=== PATIENT | female | born 1930 | race Hispanic/Latino ===

== ENCOUNTER 2017-03-15 06:39 | Day surgery (SDC) | payer MEDICARE ==
[2017-03-14 07:51] VITALS: BMI 33.2
[2017-03-15] MEDS ORDERED: Iohexol 240 (50 ml) ONE (07:34)
[2017-03-15] MEDS ORDERED: Lidocaine 2% Jelly (Uro-Jet) ONE (07:34)
[2017-03-15] MEDS ORDERED: Propofol 10 mg/ml Inj (20 ML) ONE (07:44)
[2017-03-15] MEDS ORDERED: Lidocaine 2% Inj (20ml) ONE (07:45)
[2017-03-15 07:47] VITALS: RESP 18
[2017-03-15] MEDS ORDERED: Lactated Ringer's 1,000 ML IV SCH (08:20)
[2017-03-15] MEDS ORDERED: Morphine 2 mg/ml ISec IVP PRN (08:20)
--- NOTE | 2017-03-15 08:37 | RAD ---
HISTORY: PRE-OP COMPARISON: No prior. FINDINGS: LUNGS: No active pulmonary disease. PLEURA: No significant pleural effusion identified, no pneumothorax apparent. CARDIOVASCULAR: Normal. OSSEOUS STRUCTURES: No significant abnormalities. VISUALIZED UPPER ABDOMEN: Normal. OTHER FINDINGS: None. IMPRESSION: No active disease.
[2017-03-15 08:49] VITALS: O2SAT 95
[2017-03-15 09:20] VITALS: BP 137/69; PULSE 104; TEMP 98.3
--- NOTE | 2017-03-15 09:41 | CARD ---
APPROVED REPORT EKG Measurement Heart [id number] <Conclusion> Atrial fibrillation with rapid ventricular response Minimal voltage criteria for LVH, may be normal variant Abnormal ECG
--- NOTE | 2017-03-15 10:43 | RAD ---
PROCEDURE: Abdomen multiple views HISTORY: is rt ureteral stone visible? COMPARISON: TECHNIQUE: Three views FINDINGS: Right-sided ureteral stent. There are no stones seen along side the stent. IMPRESSION: No visible ureteral stone
--- NOTE | 2017-03-15 11:04 | RAD ---
PROCEDURE: Fluoroscopy up to 1 hour HISTORY: INSERTION RT STENT COMPARISON: TECHNIQUE: Fluoroscopy was provided in the operating room. 10 seconds of fluoroscopy time. Two images were submitted FINDINGS: The study shows placement of a right ureteral stent IMPRESSION: As above
--- NOTE | 2017-03-15 17:33 | OP ---
PROCEDURE DATE: 03/15/2017 PREOPERATIVE DIAGNOSIS: Obstructing right ureteral calculus. POSTOPERATIVE DIAGNOSES: Obstructing right ureteral calculus. PROCEDURE PERFORMED: Cystoscopy and insertion of right pigtail stent. SURGEON: Gordo France MD TYPE OF ANESTHESIA: LMA. DESCRIPTION OF PROCEDURE: After adequate LMA general anesthesia was given, the patient was placed lithotomy, prepped and draped in the usual manner. A 22-Somali cystourethroscope was introduced. Inspection of the bladder showed no tumors, foreign bodies, or stones. Clear efflux from the left orifices, none from the right. Urine was obtained for culture and sensitivity upon initial introduction of the cystoscope. There appeared to be a stone on fluoroscopy on the right side, opposite L4, I placed a 0.35 sensor wire up under fluoroscopic guidance. It went up and coiled in the kidney. Over this a 6-Somali 26 cm pigtail stent was then advanced. When properly placed, the wire was removed. The stent coiled nicely in the right renal pelvis within the bladder. The bladder was drained. The cystoscope was removed. The patient was awakened and brought to the recovery room in good condition. Gordo France MD
== END 2017-03-15 09:45 | disposition home or self-care (01) ==
LOC: SDS 06:39
PROVIDERS: ATTEND Urology
DX: N20.1 Calculus of ureter (principal); I10 Essential (primary) hypertension
CPT/HCPCS: 52332; 71010; 74022; 87086; 93005; C2625; J2270; J2405; J2704; J2765; J3010; J7120 ×2

== ENCOUNTER 2017-04-01 10:33 | Inpatient (IN) | payer MEDICARE ==
[2017-04-01 10:33] VITALS: BMI 33.2
--- NOTE | 2017-04-01 11:46 | ED PDOC ---
Arrival/HPI - General Chief Complaint: High Blood Pressure Time Seen by Provider: 04/01/17 11:12 Historian: Patient - History of Present Illness Narrative History of Present Illness (Text): 04/01/17 11:30 87 year old female, whose past medical history includes hypertension, gallstones , as well as prior subarachnoid hemorrhage, presents complaining of constant mid -sternal chest discomfort that began 03/12/17. She states symptoms occurred " out of nowhere" and is not associated with walking or activity. No associated shortness of breath or leg swelling. No nausea. She denies abdominal pain. She recorded her blood pressure at home this morning and it was noted to be "254/ 140 and 227/101" by family. She reporedly did not have headache or visual symptoms. No numbness or weakness or unsteadiness. Patient reports chest discomfort was not exacerbated this morning while having this blood pressure reading.. Patient states that she had trouble sleeping due to the discomfort and only slept for 3 hours. She describes the pain to be "not a sharp pain, but an annoying constant and steady discomfort". Patient also reports several years ago her doctor reportedly told her she had 2 gallstones found by X-Ray, no surgery was performed as reported prior symptoms were not acute. PMD: Dr. Mallory Time/Duration: Other (03/12/17 21 days) Symptom Onset: Gradual Symptom Course: Unchanged Activities at Onset: Light Context: Home Past Medical History - Provider Review Nursing Documentation Reviewed: Yes - Tetanus Immunization Tetanus Immunization: Unknown - Cardiac Hx Hypertension: Yes - Pulmonary Hx Respiratory Disorders: No - Neurological Hx Neurological Disorder: No - HEENT Hx HEENT Disorder: Yes ("WRINKLED RETINA") Hx Cataracts: Yes Hx Deafness: Yes - Renal Hx Renal Disorder: Yes Hx Kidney Stones: Yes - Endocrine/Metabolic Hx Endocrine Disorders: No - Hematological/Oncological Hx Blood Disorders: No - Integumentary Hx Dermatological Disorder: Yes Hx Eczema: Yes (H/O) - Musculoskeletal/Rheumatological Hx Musculoskeletal Disorders: Yes - Gastrointestinal Hx Gastrointestinal Disorders: Yes Hx Gall Bladder Disease: Yes (CHOLECYSTITIS,GALLSTONES) - Psychiatric Hx Substance Use: No - Surgical History Hx Musculoskeletal Surgery: Yes (R HIP, BILAT KNEES) - Anesthesia Hx Anesthesia: Yes Hx Anesthesia Reactions: No Hx Malignant Hyperthermia: No - Suicidal Assessment Feels Threatened In Home Enviroment: No Family/Social History - Physician Review Nursing Documentation Reviewed: Yes Family/Social History: No Known Family HX Smoking Status: Never Smoked Hx Alcohol Use: Yes (SOCIALLY/OCCASIONALLY) Hx Substance Use: No Allergies/Home Meds Allergies/Adverse Reactions: Allergies latex Allergy (Verified 04/01/17 10:42) SWELLING Home Medications: Home Meds Medication Instructions Recorded Confirmed Hydroxychloroquine Sulfate 200 mg PO DAILY 10/03/14 04/01/17 [Hydroxychloroquine Sulfate] Meloxicam [Meloxicam] 7.5 mg PO DAILY 10/03/14 04/01/17 Losartan/Hydrochlorothiazide 12.5 mg PO DAILY 03/14/17 04/01/17 [Losartan-Hctz 50-12.5 mg Tab] amLODIPine [Norvasc] 5 mg PO DAILY 03/14/17 04/01/17 Tamsulosin [Flomax] 0.4 mg PO DAILY 04/01/17 04/01/17 Review of Systems - Review of Systems Constitutional: absent: Fatigue, Fevers Eyes: absent: Vision Changes, Eye Pain ENT: absent: Hearing Changes, Rhinorrhea Respiratory: absent: SOB, Cough Cardiovascular: Chest Pain (mid-sternal). absent: Edema, Calf Pain, ALERGE Gastrointestinal: absent: Abdominal Pain, Diarrhea, Nausea, Vomiting, Appetite Changes Genitourinary Female: absent: Dysuria, Frequency Musculoskeletal: absent: Back Pain, Other (leg swelling) Skin: absent: Rash Neurological: absent: Headache, Dizziness, Focal Weakness Endocrine: absent: Polyuria, Polydipsia Hemo/Lymphatic: absent: Easy Bleeding Physical Exam - Physical Exam Narrative Physical Exam (Text): Head: Atraumatic. Normocephalic. Eyes: PERRL. EOMI. Conjunctivae are not pale. ENT: Mucous membranes are moist and intact. Oropharynx is clear and symmetric. Neck: Supple. Full ROM. No JVD. No lymphadenopathy. Cardiovascular: Regular rate. Regular rhythm. Systolic murmur is noted. Distal pulses are 2+ and symmetric. Pulmonary/Chest: No evidence of respiratory distress. Clear to auscultation bilaterally. No wheezing, rales or rhonchi. Abdominal: Soft and non-distended. There is no tenderness. No rebound, guarding, or rigidity. No organomegaly. Good bowel sounds. No pulsatile masses. Back: No CVA tenderness. Extremities: No edema. No cyanosis. No clubbing. Full range of motion in all extremities. No calf tenderness. Distal pulses intact. No foot edema or erythema noted. No streaking. Skin: Skin is warm and dry. No petechiae. No purpura. Neurological: Alert, awake, and oriented. No slurred speech. Motor and sensory exam intact. No facial droop. Cranial nerves grossly intact. Psychiatric: Good eye contact. Normal interaction, affect, and behavior. Vital Signs Reviewed: Yes Vital Signs Temp Pulse Resp BP Pulse Ox 04/01/17 15:30 98.1 F 90 16 145/69 04/01/17 15:28 98.1 F 90 16 145/69 95 04/01/17 12:31 88 18 133/58 L 98 04/01/17 10:44 98.2 F 91 H 16 159/77 H 96 Temperature: Afebrile Blood Pressure: Hypertensive Respiratory Rate: Normal Appearance: Positive for: Well-Appearing, Non-Toxic, Comfortable Pain Distress: Mild Mental Status: Positive for: Alert and Oriented X 3 Medical Decision Making ED Course and Treatment: 04/01/17 11:30 Impression: 87 year old female presents complaining of mid-sternal chest discomfort since . There was recorded elevated blood pressure this AM prior to arrival, but no associated acute symptoms aside from history of intermittent chest discomfort. Differential Diagnosis included but are not limited to: Coronary Artery Disease VS Gastritis VS Biliary Colic VS Systemic Hypertension Plan: -- EKG -- Labs -- Chest X-ray -- Urinalysis -- Reassess and disposition Progress Notes: Patient reportedly with prior history of hypertension, on hypertensive medications. Current BP in ED was taken multiple times and remains controlled in ED. She has chest discomfort but by history it is not exertional and has been intermittent for several weeks. She denies dsypnea, nausea or exertional pain. Her neuro exam is intact. Chest X-ray: Report Date : 04/01/2017 13:29:20 Dictator : Luis Fischer MD IMPRESSION: Poor inspiration with low lung volumes, crowded bronchovascular markings and mild bibasilar atelectasis. . Cardiomegaly. 04/01/17 14:02 Patient EKG with nonspecific st change. Initial troponin levels 0.04. Currently denies chest pain and abdominal pain. As she has had hypertension associated with chest pain, as well as no prior recent workup for cardiac disease, she will be admitted to on-call service for monitoring and serial exams with cardiology consultation. On re-exam, no abdominal pain, no pulsatile masses, BP controlled and currently no chest pain at rest. Family at beside updated with labs and treatment plan. - Lab Interpretations Lab Results: 04/01/17 11:40 04/01/17 11:40 Lab Results 04/01/17 12:04: Urine Color Yellow, Urine Appearance Slight-cloudy, Urine pH 6.0 , Ur Specific [place]on 1.020, Urine Protein Negative, Urine Glucose (UA) Negative , Urine Ketones Negative, Urine Blood Negative, Urine Nitrate Negative, Urine Bilirubin Negative, Urine Urobilinogen 0.2, Ur Leukocyte Esterase Trace H, Urine RBC 0 - 2, Urine WBC 1 - 3, Ur Epithelial Cells 1 - 3 04/01/17 11:40: PT 11.5, INR 1.06, APTT 26.1 04/01/17 11:40: WBC 5.2 D, RBC 4.00, Hgb 11.6 L, Hct 35.6 L, MCV 89.0, MCH 29.0 , MCHC 32.6, RDW 12.7, Plt Count 338, MPV 9.7, Gran % 73.2 H, Lymph % (Auto) 14.3 L, [place] % (Auto) 9.4 H, Eos % (Auto) 2.9, Baso % (Auto) 0.2, Gran # 3.80, Lymph # 0.7 L, [place] # 0.5, Eos # 0.2, Baso # 0.01 04/01/17 11:40: Sodium 139, Potassium 4.3, Chloride 103, Carbon Dioxide 30, Anion Gap 10, BUN 17, Creatinine 0.6, Est GFR ( Amer) > 60, Est GFR (Non- Af Amer) > 60, Random Glucose 110, Calcium 9.8, Total Bilirubin 0.7, AST 24, ALT 32, Alkaline Phosphatase 68, Lactate Dehydrogenase 360, Total Creatine Kinase 32 L, Troponin I 0.04, Total Protein 6.2, Albumin 3.7, Globulin 2.5, Albumin/Globulin Ratio 1.5, Amylase 36, Lipase 84 I have reviewed the lab results: Yes - RAD Interpretation Radiology Orders: 04/01/17 11:29 CHEST PORTABLE [RAD] Stat 04/01/17 13:24 ABDOMEN COMPLETE [US] Stat - EKG Interpretation EKG Interpretation (Text): 04/01/17 16:10 EKG sinus rhythm with first degree av block and nonspecific st t wave changes Interpreted by ED Physician: Yes Type: 12 lead EKG - Medication Orders Current Medication Orders: Acetaminophen (Tylenol 325mg Tab) 650 mg PO Q6H PRN PRN Reason: Fever >100.4 F Amlodipine Besylate (Norvasc) 5 mg PO DAILY LINDA Aspirin (Aspirin Chewable) 81 mg PO DAILY LINDA Hydrochlorothiazide (Microzide) 12.5 mg PO DAILY LINDA Hydroxychloroquine Sulfate (Plaquenil) 200 mg PO DAILY LINDA Losartan Potassium (Cozaar) 50 mg PO DAILY LINDA Meloxicam (Mobic) 7.5 mg PO DAILY LINDA Metoprolol Succinate (Toprol Xl) 25 mg PO BRK LINDA Ondansetron HCl (Zofran Inj) 4 mg IVP Q6H PRN PRN Reason: Nausea/Vomiting Pantoprazole Sodium (Protonix Ec Tab) 40 mg PO 0630 LINDA Tamsulosin HCl (Flomax) 0.4 mg PO DAILY LINDA Discontinued Medications Aspirin (Aspirin Chewable) 81 mg PO STAT STA Stop: 04/01/17 15:41 Last Admin: 04/01/17 15:44 Dose: 81 mg Aspirin (Aspirin Chewable) Confirm Administered Dose 81 mg .ROUTE .STK-MED ONE Stop: 04/01/17 15:45 Last Admin: 04/01/17 15:55 Dose: Hydrochlorothiazide (Microzide) 12.5 mg PO STAT STA Stop: 04/01/17 15:59 Losartan Potassium (Cozaar) 50 mg PO STAT STA Stop: 04/01/17 15:58 - Scribe Statement The provider has reviewed the documentation as recorded by the Orlyibderek Parsons All medical record entries made by the Orlyibderek were at my direction and personally dictated by me. I have reviewed the chart and agree that the record accurately reflects my personal performance of the history, physical exam, medical decision making, and the department course for this patient. I have also personally directed, reviewed, and agree with the discharge instructions and disposition. Disposition/Present on Arrival - Present on Arrival Any Indicators Present on Arrival: No History of DVT/PE: No History of Uncontrolled Diabetes: No Urinary Catheter: No History of Decub. Ulcer: No History Surgical Site Infection Following: None - Disposition Have Diagnosis and Disposition been Completed?: Yes Diagnosis: Chest pain, Hypertension Disposition: HOSPITALIZED Disposition Time: 12:30 Patient Plan: Admission, Observation, Telemetry Condition: FAIR
[2017-04-01 11:59] LABS: ALB/GLOB RATIO 1.5 (1.1-1.8); ALKALINE PHOSPHATASE 68 U/L (38-126); ALT/SGPT 32 U/L (7-56); AMYLASE 36 U/L (35-125); AST/SGOT 24 U/L (14-36); BILIRUBIN,TOTAL 0.7 mg/dL (0.2-1.3); BLOOD UREA NITROGEN 17 mg/dL (7-21); CALCIUM 9.8 mg/dL (8.4-10.5); CARBON DIOXIDE 30 mmol/L (21-33); CHLORIDE 103 mmol/L (98-107); GFR AFRICAN-AMERICAN > 60; GLUCOSE,RANDOM 110 mg/dL (70-110); LIPASE 84 U/L (23-300); POTASSIUM 4.3 mmol/L (3.6-5.0); SODIUM 139 mmol/L (132-148); TOTAL PROTEIN 6.2 g/dL (5.8-8.3)
[2017-04-01 12:04] LABS: BASO # 0.01 K/mm3 (0.0-2.0); BASO % 0.2 % (0.0-3.0); EOS # 0.2 (0.0-0.7); EOS % 2.9 % (1.5-5.0); GRAN # 3.8 (1.4-6.5); GRAN % 73.2 % (50.0-68.0); HEMATOCRIT 35.6 % (36.0-48.0); LYMPH # 0.7 (1.2-3.4); LYMPH % 14.3 % (22.0-35.0); MEAN CORPUSCULAR HGB CONC 32.6 g/dl (31.0-37.0); MEAN PLATELET VOLUME 9.7 fl (7.0-11.0); MONO # 0.5 (0.1-0.6); MONO % 9.4 % (1.0-6.0); RED CELL DISTRIBUTION WIDTH 12.7 % (11.5-14.5); WHITE BLOOD COUNT 5.2 10^3/ul (4.5-11.0)
[2017-04-01 12:10] LABS: TROPONIN I 0.04 ng/mL
[2017-04-01 12:11] LABS: URINE BILIRUBIN NEGATIVE (NEGATIVE); URINE BLOOD NEGATIVE (NEGATIVE); URINE GLUCOSE (UA) NEGATIVE (NEGATIVE); URINE KETONE NEGATIVE (NEGATIVE); URINE LEUKOCYTE ESTERASE TRACE Leu/uL (NEGATIVE); URINE PROTEIN NEGATIVE mg/dL (<30 mg/dL); URINE UROBILINOGEN 0.2 E.U./dL (<1 E.U./dL)
[2017-04-01 12:12] LABS: INR 1.06 (0.93-1.08); PARTIAL THROMBOPLASTIN TIME 26.1 Seconds (23.7-30.8)
[2017-04-01 12:14] LABS: URINE APPEARANCE SLIGHT-CLOUDY (CLEAR); URINE COLOR YELLOW (YELLOW)
[2017-04-01 12:22] LABS: URINE RBC 0 - 2 /hpf (0-2)
--- NOTE | 2017-04-01 13:31 | RAD ---
HISTORY: chest pain COMPARISON: Comparison chest 03/15/2017 FINDINGS: LUNGS: Poor inspiration with low lung volumes, crowded bronchovascular markings and mild bibasilar atelectasis. . PLEURA: No significant pleural effusion identified, no pneumothorax apparent. CARDIOVASCULAR: Heart is enlarged. OSSEOUS STRUCTURES: Mild multilevel degenerative spondylosis of the thoracic spine. Mild degenerative changes both shoulder girdles. VISUALIZED UPPER ABDOMEN: Normal. OTHER FINDINGS: None. IMPRESSION: Poor inspiration with low lung volumes, crowded bronchovascular markings and mild bibasilar atelectasis. . Cardiomegaly.
--- NOTE | 2017-04-01 14:17 | CARD ---
APPROVED REPORT EKG Measurement Heart [id number] <Conclusion> Sinus rhythm with 1st degree AV block Nonspecific T wave abnormality Abnormal ECG
[2017-04-01] MEDS ORDERED: LOSARTAN PO SCH (16:00)
[2017-04-01] MEDS ORDERED: HYDROCHLOROTHIAZIDE PO SCH (16:00)
[2017-04-01] MEDS ORDERED: [UNRECOGNIZED DRUG - OTHER] PO SCH (16:00)
--- NOTE | 2017-04-01 16:49 | US ---
HISTORY: upper abdominal pain COMPARISON: None. TECHNIQUE: Sonographic evaluation of the abdomen. FINDINGS: LIVER: Measures approximately 14 cm in CC dimension. Cm. Smooth contour though slight increased echogenicity of the liver parenchyma suggest fatty infiltration. Other infiltrative hepatocellular disease process not excluded. . No obvious parenchymal masses or collections seen on images presented. No intrahepatic bile duct dilatation. Portal vein demonstrates hepatopetal flow. No ascites. GALLBLADDER: No evidence of intraluminal gallbladder calculi. No pericholecystic fluid collections or sonographic Fraire sign. COMMON BILE DUCT: Measures 4.6 mm. No stones. No dilatation. PANCREAS: Unremarkable as visualized. No mass. No ductal dilatation. RIGHT KIDNEY: Measures approximately 11.0 x 5.5 x 5.8cm. Normal echogenicity. No calculus, mass, or hydronephrosis. LEFT KIDNEY: Measures approximately 11.7 x 4.3 x 4.5cm. Normal echogenicity. No calculus, mass, or hydronephrosis. . There are 2 anechoic foci left kidney (likely representing renal cysts) ; the 1st and the largest located in the upper pole measuring 3.8 cm in greatest dimension and 2nd in the midpole measuring approximately 1.2 cm in greatest dimension. . SPLEEN: Normal in size and contour. No mass. AORTA: No aneurysmal dilatation. IVC: Unremarkable. OTHER FINDINGS: None. IMPRESSION: No evidence of cholelithiasis. Mild fatty hepatic infiltration. Two anechoic foci left kidney likely representing renal cysts.
[2017-04-01] MEDS: Metoprolol Succinate 25 mg XL Tab PO SCH (16:54)
[2017-04-02 00:10] VITALS: O2SAT 96
--- NOTE | 2017-04-02 01:25 | HP ---
HISTORY OF PRESENT ILLNESS: The patient is 87 years old who came to emergency room because of chest pain, having epigastric discomfort. Pain was in the midsternal area. The patient states she is having intermittent symptoms for a couple of days, to be exact on 03/12/2017 she had similar symptom. At that point, her blood pressure at home was 254/140, but after she rested she felt better. She slept for a couple of hours and pain seemed to subside. Pain is not sharp and it is a dull, aching, retrosternal discomfort. Denies any fever or chills. No nausea or vomiting. No diarrhea. No hemoptysis. No hematemesis. No history of rectal bleeding. PAST MEDICAL HISTORY: She has significant past medical history of: 1. Hypertension. 2. Cholelithiasis. 3. History of generalized osteoarthritis. PAST SURGICAL HISTORY: Significant for right hip and bilateral knee replacement. ALLERGIES: SHE IS NOT ALLERGIC TO ANY MEDICATION. MEDICATIONS: At home she is on; 1. Chloroquine. 2. Amlodipine. 3. Hyzaar. 4. Meloxicam. 5. She is on Flomax 0.4 daily. She is on amlodipine 5 mg daily. She is on 7.5 mg of meloxicam. She is on Hyzaar of 50/12.5. 6. She takes Plaquenil. SOCIAL HISTORY: Denies smoking or drinking, socially drinks only. PHYSICAL EXAMINATION: GENERAL: On examination, she is awake and alert, communicative. VITAL SIGNS: She is afebrile. Pulse 90, respirations 16, blood pressure 145/69. LUNGS: Bilateral fair air flow. No rhonchi or crackles. HEART: S1 and S2 audible. ABDOMEN: Soft, nontender. No rebound. No guarding. NEUROLOGIC: The patient is awake and alert, able to communicate. LABORATORY EXAM: WBC is 5.2, hemoglobin 11.6, hematocrit 35.6, platelets 338. PT 11.5, INR 1.06. Chemistry: Sodium 139, potassium 4.3, chloride 103, CO2 of 30, BUN 17, and creatinine 0.6. Blood sugar of 110. LFTs are within normal limits. CPK is 32. Urinalysis is unremarkable, trace leukocyte. IMAGING: Abdominal ultrasound is pending. X-ray chest: Poor inspiration with low lung volume with cardiomegaly. EKG shows normal sinus rhythm and first degree block. ASSESSMENT: 1. Atypical chest pain, rule out coronary artery syndrome versus peptic ulcer disease. 2. History of cholelithiasis. 3. History of rheumatoid arthritis. 4. Hypertension. 5. Status post bilateral knee replacement. PLAN: The patient will be placed in observation. We will follow up cardiac enzymes. We will resume her usual medication. Cardiology consult by Dr. Dennis has been requested. We will follow up abdominal ultrasound and start her on PPI. We will reevaluate the patient in a.m. Constance Hall MD
[2017-04-02] MEDS: Pantoprazole 40 mg EC Tab PO SCH (05:33)
[2017-04-02 07:27] LABS: BASO # 0.01 K/mm3 (0.0-2.0); BASO % 0.2 % (0.0-3.0); EOS # 0.2 (0.0-0.7); EOS % 3.2 % (1.5-5.0); GRAN # 4.47 (1.4-6.5); GRAN % 71.6 % (50.0-68.0); HEMATOCRIT 36.7 % (36.0-48.0); LYMPH # 0.9 (1.2-3.4); LYMPH % 14.4 % (22.0-35.0); MEAN CELL VOLUME 89.3 fl (80.0-105.0); MEAN CORPUSCULAR HEMOGLOBIN 28.7 pg (25.0-35.0); MEAN CORPUSCULAR HGB CONC 32.2 g/dl (31.0-37.0); MEAN PLATELET VOLUME 9.7 fl (7.0-11.0); MONO # 0.7 (0.1-0.6); MONO % 10.6 % (1.0-6.0); RED CELL DISTRIBUTION WIDTH 12.9 % (11.5-14.5); WHITE BLOOD COUNT 6.2 10^3/ul (4.5-11.0)
[2017-04-02 07:50] LABS: ALB/GLOB RATIO 1.4 (1.1-1.8); ALKALINE PHOSPHATASE 61 U/L (38-126); ALT/SGPT 26 U/L (7-56); AST/SGOT 29 U/L (14-36); BILIRUBIN,TOTAL 0.8 mg/dL (0.2-1.3); BLOOD UREA NITROGEN 14 mg/dL (7-21); CALCIUM 9.8 mg/dL (8.4-10.5); CARBON DIOXIDE 28 mmol/L (21-33); CHLORIDE 105 mmol/L (98-107); GFR AFRICAN-AMERICAN > 60; GLUCOSE,RANDOM 101 mg/dL (70-110); MAGNESIUM 1.7 mg/dL (1.7-2.2); POTASSIUM 4.2 mmol/L (3.6-5.0); SODIUM 141 mmol/L (132-148); TOTAL PROTEIN 5.9 g/dL (5.8-8.3)
[2017-04-02 08:23] LABS: FREE T4 1.25 ng/dL (0.78-2.19)
[2017-04-02 08:37] LABS: THYROID STIMULATING HORMONE 0.45 mIU/mL (0.46-4.68)
[2017-04-02] MEDS: Meloxicam 7.5 MG TAB PO SCH (10:03)
[2017-04-02] MEDS: Metoprolol Succinate 25 mg XL Tab PO SCH (10:04)
--- NOTE | 2017-04-02 14:10 | PN ---
DATE: SUBJECTIVE: The patient is an 87 years old, seen and examined. She states she has right flank pain and that she was relating to by the end of February, she was found to have nephrolithiasis, she went to see the urologist who put the stent. She was supposed to follow that urologist on Sunday, but yesterday she was having retrosternal discomfort that has significantly improved and almost gone. No nausea or vomiting. No fever and no chills. PHYSICAL EXAMINATION: VITAL SIGNS: She is afebrile. Pulse is 80, respirations are 20, and blood pressure is 178/71. LUNGS: Bilateral fair airflow. No rhonchi or crackles. HEART: S1 and S2 audible. ABDOMEN: Soft and nontender. No rebound. No guarding. NEUROLOGICAL: The patient is awake and alert and able to communicate. LABORATORY DATA: WBC of 6.2, hemoglobin of 11.8, hematocrit of 36.7, and platelets of 326. Sodium of 141, potassium of 4.2, chloride of 105, CO2 of 28, BUN of 14, and creatinine of 0.6. Blood sugar of 101. LFTs are within normal limits. RADIOLOGIC DATA: She has an abdominal sonogram done that has no evidence of cholelithiasis; however, she has mild hepatic fatty infiltration. ASSESSMENT AND PLAN: 1. Chest pain, probably atypical. 2. Hypertension. 3. Recent episode of renal colic. 4. Generalized osteoarthritis. PLAN: Her three sets of cardiac enzymes are negative. We will discuss with Cardiology for further plan that if she is going stress test or cath and we will reevaluate. Constance Hall MD
[2017-04-02] MEDS ORDERED: Lidocaine 2% Inj (20ml) ONE ×2 (14:16→15:27)
[2017-04-02] MEDS ORDERED: Midazolam 2 MG/2 ML VIAL ONE (14:17)
[2017-04-02] MEDS ORDERED: Nitroglycerin 50mg in D5W 50 MG/250 ML BOTTLE IV ONE (14:18)
[2017-04-02] MEDS ORDERED: Iohexol 350mgl/ml 50 ML ONE (15:01)
[2017-04-02] MEDS ORDERED: Iohexol 350 MG/100 ML VIAL ONE (15:17)
[2017-04-02] MEDS ORDERED: Eptifibatide 20 mg/10mL Inj IVP ONE (15:39)
[2017-04-02] MEDS ORDERED: Sodium Chloride 0.9% 1,000 ML IV SCH (16:30)
--- NOTE | 2017-04-02 16:54 | CARD ---
APPROVED REPORT Procedure(s) performed: Left Heart Catheterization PTCA with Stenting of Proximal to Mid RCA with JOELLE HISTORY peripheral vascular disease, hypertension , dyslipidemia , Admitted with Acute ACS. INDICATION The indication(s) include : unstable angina , chest pain, dyspnea. CASE TECHNIQUE The patient was brought urgently to the Cardiac Catheterization Laboratory in a fasting state and was prepped and draped in a sterile manner. The left wrist was infiltrated with 2% Lidocaine subcutaneous anesthesia. A 6 Fr Glidesheath (Radial) sheath was inserted into the left radial artery without difficulty. Coronary angiography was performed using coronary diagnostic catheters. The left coronary system was accessed and visualized with a Diagnostic ,6 Fr AL 1 catheter. The right coronary system was accessed and visualized with a Diagnostic ,6 Fr AL 1 catheter. The left ventricle was accessed and visualized with a 5 Fr TIG 4 (Radial) catheter. Left ventricular/Aortic Valve gradient assessed on pullback. Left ventriculogram was performed in GEORGE projection. Pre-demployment femoral angiogram was performed . The patient tolerated the procedure well and there were no complications associated with the procedure. Cath started with left radial but could not canulate RCA b/c seperior take off so Right Femral access obtained and PTCa completed from RFA Vessel Analysis The patient's coronary anatomy is right dominant. The left main coronary artery is a large size vessel with diffuse calcification noted throughout this vessel and without significant stenosis. The left main trifurcates to the left anterior descending, circumflex, and ramus. The left anterior descending artery is a large size vessel with diffuse calcification noted throughout this vessel and without significant stenosis. The first diagonal branch is a medium size vessel with diffuse calcification noted throughout this vessel and without significant stenosis. There is a 60-70% stenosis in the proximal segment. The circumflex artery is a small size vessel with diffuse calcification noted throughout this vessel and without significant stenosis. The first obtuse marginal branch is a small size vessel with diffuse calcification noted throughout this vessel and without significant stenosis. The ramus intermedius artery is a medium size vessel with diffuse calcification noted throughout this vessel and without significant stenosis. There is a 40-50% stenosis in the proximal segment. The right coronary artery is a large size vessel with diffuse calcification noted throughout this vessel and with significant stenosis. There is a 90% stenosis in the proximal segment. Multiple stenoses in proximal to Mid Segment The right posterior descending artery is a medium size vessel with diffuse calcification noted throughout this vessel and without significant stenosis. Left Ventricle The left ventricle is normal in size with normal contractility. There was no cardiomyopathy. The left ventricular ejection fraction is estimated to be 55%. The left ventricular end diastolic pressure is 18 mmHg. There was no gradient across the aortic valve upon pullback. PCI Technique Lesion Anticoagulation was achieved with Heparin. Percutaneous coronary intervention was performed on the proximal right coronary artery. The lesion stenosis prior to intervention was 90% with ELLIS 2 flow. A 6 Fr AL 1 Guide Catheter was used to engage the ostium. BALLOON DILATION A Balloon catheter 2.0 x 12 mm Sprinter RX was inserted and inflated up to 12.00atm for 21seconds. STENT DEPLOYMENT A drug-eluting stent 3.0 x 30 mm Resolute JOELLE was inserted and inflated up to 12.00atm for 21seconds. POST STENT DEPLOYMENT BALLOON DILATION A Balloon catheter 3.25 x 15 mm Sprinter NC was inserted and inflated up to 12.00atm for 21seconds. Final angiography reveals 0 % stenosis with ELLIS 3 flow. Conclusion Single Vessel Critical Disease In proximat to Mid RCA 90% Moderate Disease in D1 and ramus intermedius. Preserved Lv Fx. Ef-555, EDP-18 mmof Hg. Successful PTCA with JOELLE of RCA Recommendations Daily ASA with Plavix for at least one year Aggressive Medical TherapyCardiac Risk Reduction Program Weight Loss Reduction Program CC; Drs. Hall/Isaiah Mallory.
[2017-04-02 20:23] LABS: BASO # 0.01 K/mm3 (0.0-2.0); BASO % 0.1 % (0.0-3.0); EOS # 0.2 (0.0-0.7); EOS % 2.2 % (1.5-5.0); GRAN # 5.48 (1.4-6.5); GRAN % 74.8 % (50.0-68.0); HEMATOCRIT 36.1 % (36.0-48.0); LYMPH # 0.9 (1.2-3.4); LYMPH % 11.6 % (22.0-35.0); MEAN CORPUSCULAR HEMOGLOBIN 29.3 pg (25.0-35.0); MEAN CORPUSCULAR HGB CONC 33.2 g/dl (31.0-37.0); MEAN PLATELET VOLUME 9.8 fl (7.0-11.0); MONO # 0.8 (0.1-0.6); MONO % 11.3 % (1.0-6.0); RED CELL DISTRIBUTION WIDTH 12.7 % (11.5-14.5); WHITE BLOOD COUNT 7.3 10^3/ul (4.5-11.0)
[2017-04-02 20:35] LABS: BLOOD UREA NITROGEN 13 mg/dL (7-21); CALCIUM 9.9 mg/dL (8.4-10.5); CARBON DIOXIDE 26 mmol/L (21-33); CHLORIDE 103 mmol/L (98-107); GFR AFRICAN-AMERICAN > 60; GLUCOSE,RANDOM 94 mg/dL (70-110); POTASSIUM 3.7 mmol/L (3.6-5.0); SODIUM 137 mmol/L (132-148)
--- NOTE | 2017-04-02 20:39 | CARD ---
APPROVED REPORT EKG Measurement Heart [id number] <Conclusion> Normal sinus rhythm Nonspecific T wave abnormality Abnormal ECG
--- NOTE | 2017-04-02 21:36 | CON ---
DATE: CONSULT SERVICE: Cardiology. CARDIOLOGY PHYSICIAN: Bree Dennis MD REASON FOR CONSULTATION: Unstable angina, cardiac evaluation. BRIEF CLINICAL HISTORY: An 87-year-old female with past medical history significant for hypertension, cholelithiasis treated medically, history of arthritis on Plaquenil, came in with compliant of chest pain off and on. Yesterday, the patient when coming out of the [facility] had chest pain pressure like with shortness of breath. The patient thought that she cannot take anymore and the blood pressure shot up to 254/140. The patient recently complained of having chest pain and dyspnea on exertion with walking. Pressure in the ER was 159/77. Denies any chest pain now. PAST MEDICAL HISTORY: Significant for hypertension many years, stone in gallbladder was treated medically, history of arthritis. SOCIAL HISTORY: Denies smoking. Denies any history of alcohol abuse. PAST SURGICAL HISTORY: Significant for hip surgery 5 years ago and bilateral knee 7 years ago. ALLERGIES: NO KNOWN DRUG ALLERGIES. CURRENT MEDICATIONS: The patient is taking at home: Flomax, amlodipine, meloxicam, Losartan and Plaquenil. REVIEW OF SYSTEMS: As per HPI. PHYSICAL EXAMINATION: VITAL SIGNS: As follows, temperature afebrile, heart rte 91, and blood pressure 149/65. HEENT: PERRLA. Extraocular muscles are intact. NECK: Supple. No carotid bruits or thyromegaly. CHEST: Clear to auscultation. HEART: S1 and S2 regular. ABDOMEN: Soft. EXTREMITIES: Clubbing, cyanosis negative. LABORATORY DATA: Blood workup as follows: WBC 6.8, hemoglobin 11.8, hematocrit 36.7, and platelet count 326. Chemistry shows sodium 141, potassium 4.2, chloride 105, carbon dioxide 28, anion gap of 12, BUN 14, and creatinine 0.6. TSH 4.5. Total protein 6.2, albumin 3.7, and albumin-globulin ratio 1.5. Troponin 0.04, repeat is 0.08. EKG shows normal sinus, first degree AV block, heart rate 80. No acute ST-T changes noted. IMPRESSION: Acute coronary syndrome, first troponin 0.04, repeat 0.04, and next is 0.1. Progressively increasing troponin, acute shortness of breath, unstable angina, hypertension, obesity, body mass index 30 kg/m2 and crescendo angina. In view of multiple risk factors of coronary artery disease and crescendo angina decided to take to the matlab developer. Discussed with the patient's daughter named Brionna, telephone number [phone], agreeable to proceed for cardiac catheterization upon the availability of the matlab developer. We will load her with Plavix 100 mg and aspirin 325. Keep n.p.o. Further recommendation after cardiac catheterization. We will get echo to access left ventricular function. We will follow with you. Thank you Dr. Hall for providing us the opportunity in taking care of patient Carolee Ron. Bree Dennis MD
[2017-04-02] MEDS ORDERED: Calcium Chloride 1000 mg/10 ml Syringe IV ONE (22:10)
[2017-04-02] MEDS ORDERED: Bacitracin 500 Units/gm Oint Foilpak UD ONE (22:12)
[2017-04-03] MEDS: Pantoprazole 40 mg EC Tab PO SCH (06:27)
[2017-04-03 06:57] LABS: BASO # 0.01 K/mm3 (0.0-2.0); BASO % 0.1 % (0.0-3.0); EOS # 0.1 (0.0-0.7); EOS % 1.1 % (1.5-5.0); GRAN # 6.47 (1.4-6.5); GRAN % 74.4 % (50.0-68.0); HEMATOCRIT 35.4 % (36.0-48.0); MEAN CELL VOLUME 88.3 fl (80.0-105.0); MEAN CORPUSCULAR HEMOGLOBIN 28.7 pg (25.0-35.0); MEAN CORPUSCULAR HGB CONC 32.5 g/dl (31.0-37.0); MEAN PLATELET VOLUME 9.9 fl (7.0-11.0); MONO # 1.2 (0.1-0.6); MONO % 13.4 % (1.0-6.0); RED CELL DISTRIBUTION WIDTH 12.9 % (11.5-14.5); WHITE BLOOD COUNT 8.7 10^3/ul (4.5-11.0)
[2017-04-03 07:16] LABS: ALB/GLOB RATIO 1.3 (1.1-1.8); ALKALINE PHOSPHATASE 60 U/L (38-126); ALT/SGPT 31 U/L (7-56); AST/SGOT 22 U/L (14-36); BILIRUBIN,TOTAL 1.1 mg/dL (0.2-1.3); BLOOD UREA NITROGEN 13 mg/dL (7-21); CALCIUM 9.6 mg/dL (8.4-10.5); CARBON DIOXIDE 27 mmol/L (21-33); CHLORIDE 105 mmol/L (98-107); CHOLESTEROL 161 mg/dL (130-200); GFR AFRICAN-AMERICAN > 60; GLUCOSE,RANDOM 109 mg/dL (70-110); MAGNESIUM 1.5 mg/dL (1.7-2.2); PHOSPHOROUS 3.2 mg/dL (2.5-4.5); POTASSIUM 3.8 mmol/L (3.6-5.0); SODIUM 139 mmol/L (132-148); TOTAL PROTEIN 5.8 g/dL (5.8-8.3)
[2017-04-03] MEDS ORDERED: Potassium Chloride 20 mEq ER Tab PO ONE (07:43)
[2017-04-03] MEDS ORDERED: Magnesium Sulfate 2 GM in Sodium Chloride 0.9% 100 ML IVPB ONE (07:43)
[2017-04-03] MEDS: Metoprolol Succinate 25 mg XL Tab PO SCH (08:53)
[2017-04-03] MEDS ORDERED: Aspirin 325 mg EC Tablets PO SCH (10:00)
[2017-04-03] MEDS ORDERED: Magnesium Oxide 400 mg Tab UD PO SCH (10:00)
[2017-04-03] MEDS: Meloxicam 7.5 MG TAB PO SCH (10:01)
[2017-04-03 13:09] VITALS: BP 107/56; PULSE 85; RESP 17; TEMP 98.9
--- NOTE | 2017-04-03 15:01 | PN ---
DATE OF SERVICE: 04/03/2017 REASON FOR CONSULTATION: Followup acute coronary syndrome and unstable angina, status post PTCA of RCA, anomalous origin of RCA. SUBJECTIVE: The patient denies chest pain, short of breath, any palpitation, feels a lot better. OBJECTIVE: GENERAL: Lying flat in the bed, not in apparent distress. VITAL SIGNS: Temperature afebrile, heart rate 89, blood pressure 146/75. HEENT: PERRLA. Extraocular muscles are intact. NECK: Supple. No carotid bruits or thyromegaly. CHEST: Clear to auscultation. HEART: S1 and S2 regular. ABDOMEN: Soft. EXTREMITIES: Clubbing, cyanosis negative. LABORATORY DATA: Blood workup as follows: WBC 8.7, hemoglobin 11.8, hematocrit 35.4, platelet count 325. Chemistry shows sodium 139, potassium 3.9, chloride 105, carbon dioxide 27, anion gap of 11, BUN 13, creatinine 0.5, and magnesium 1.5. Troponin is 0.10. 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 RECOMMENDATION: Supplement magnesium, supplement potassium, continue aspirin baby, continue Plavix 75 mg daily, continue losartan, continue Lipitor, possible discharge, echo. We will discontinue telemetry. Thank you Dr. Hall for providing us the opportunity in taking care of the patient. We will follow with you. Bree Dennis MD cc: Dr. Hall
--- NOTE | 2017-04-04 03:42 | DS ---
HISTORY OF PRESENT ILLNESS: The patient is 87 years old seen and examined, lying in bed, seemed to be comfortable, no more chest pain. No belly pain. No flank pain. Eating and tolerating. No nausea or vomiting. PHYSICAL EXAMINATION: VITAL SIGNS: She is afebrile, pulse 89, respirations 20, and blood pressure 140/69. LUNGS: Bilateral fair airflow. No rhonchi or crackles. HEART: S1 and S2 audible. No murmur. ABDOMEN: Soft and nontender. No rebound. No guarding. NEUROLOGIC: The patient is awake and alert, able to communicate. LABORATORY DATA: WBC is 8.7, hemoglobin 11.5, hematocrit 35.4 and platelet of 325. Chemistry; sodium 139, potassium 3.8, chloride 105, CO2 of 27, BUN 13, creatinine 0.6, blood sugar of 109 and magnesium is 1.5. ASSESSMENT: 1. Chest pain, status post cardiac cath, 90% occlusion of right coronary artery had angioplasty done. 2. Recent nephrolithiasis and stent placement. 3. Hypertension. 4. Hyperlipidemia. PLAN: The patient will be discharge today. She is given prescription of aspirin 81 daily. She will continue losartan and Flomax. She is given Lipitor 20 mg, she was started mg daily. She will continue amlodipine and Plaquenil. We will add Plavix 75 daily and metoprolol 25 at bedtime. She will followup with her PMD. If she is clinically stable, can be discharge today. Constance Hall MD
== END 2017-04-03 15:00 | disposition home or self-care (01) | DRG 247 ==
LOC: ED 10:33 → ERH 14:06 → 2RSO 16:08 → OBSVTOIN 04-02 17:01
PROVIDERS: ADMIT Internal Medicine; ATTEND Internal Medicine
PROC: 027034Z Dilation of Coronary Artery, One Artery with Drug-eluting Intraluminal Device, Percutaneous Approach (ICD-10-PCS; principal; 2017-04-02)
PROC: 4A023N7 Measurement of Cardiac Sampling and Pressure, Left Heart, Percutaneous Approach (ICD-10-PCS; 2017-04-02)
PROC: B2111ZZ Fluoroscopy of Multiple Coronary Arteries using Low Osmolar Contrast (ICD-10-PCS; 2017-04-02)
PROC: B2151ZZ Fluoroscopy of Left Heart using Low Osmolar Contrast (ICD-10-PCS; 2017-04-02)
PROC: 3E033PZ Introduction of Platelet Inhibitor into Peripheral Vein, Percutaneous Approach (ICD-10-PCS; 2017-04-02)
DX: I24.9 Acute ischemic heart disease, unspecified (principal); Q24.5 Malformation of coronary vessels; I11.9 Hypertensive heart disease without heart failure; J98.11 Atelectasis; I73.9 Peripheral vascular disease, unspecified; I20.0 Unstable angina; E78.5 Hyperlipidemia, unspecified; E66.9 Obesity, unspecified; Z68.30 Body mass index [BMI] 30.0-30.9, adult; H91.90 Unspecified hearing loss, unspecified ear; I51.7 Cardiomegaly; K80.20 Calculus of gallbladder without cholecystitis without obstruction; M06.9 Rheumatoid arthritis, unspecified; M15.9 Polyosteoarthritis, unspecified; N20.0 Calculus of kidney; Z79.899 Other long term (current) drug therapy; Z87.442 Personal history of urinary calculi; Z96.653 Presence of artificial knee joint, bilateral; Z98.61 Coronary angioplasty status; H26.9 Unspecified cataract; Z91.040 Latex allergy status; M19.90 Unspecified osteoarthritis, unspecified site; I44.0 Atrioventricular block, first degree; E83.42 Hypomagnesemia

== ENCOUNTER 2018-02-07 09:30 | Day surgery (SDC) | payer MEDICARE ==
[2018-01-28 07:10] VITALS: BMI 33.5
--- NOTE | 2018-02-07 05:04 | HP ---
REASON FOR ADMISSION: VICKY cardioversion. BRIEF CLINICAL HISTORY: This is an 87-year-old female with past medical history significant for unstable angina, acute coronary syndrome, status post PTCA of anomalous right coronary artery with drug eluting stent on 04/02/2017. Followup stress test done on 01/30/2018 of the patient shows AFib new-onset. Patient was started on Eliquis and metoprolol, and patient is scheduled today for VICKY cardioversion. Patient denies chest pain, shortness of breath, or any palpitation. PAST MEDICAL HISTORY: Significant for hypertension, hyperlipidemia, acute coronary syndrome, PTCA of anomalous right coronary artery on 04/02/2017. RECENT CARDIAC WORKUP: As follows: Patient had an EKG on 01/30/2018 that showed AFib, rate of 99, poor R-wave progression. Patient had a Lexiscan done on 01/25/2018 that showed ejection fraction of 60%, fixed defect. Patient had a bilateral carotid Duplex on 01/03/2018 that showed bilateral 29% stenosis. Patient's echocardiography on 01/03/2018, ejection fraction 61%, mild PI, guua-le-hkgjyyuf mitral regurgitation, uoad-ws-wjjixubk tricuspid regurgitation, RV systolic pressure 41. CURRENT MEDICATIONS: Patient is taking metoprolol tartarate 25 mg twice, Eliquis 5 mg b.i.d., Protonix 40 mg daily, amlodipine 5 mg daily, simvastatin 20 mg daily, losartan/hydrochlorothiazide 50/12.5 mg daily, aspirin 81 mg daily. ALLERGIES: NO KNOWN DRUG ALLERGIES. ALLERGIC TO LATEX. REVIEW OF SYSTEMS: As per HPI. PHYSICAL EXAMINATION: VITAL SIGNS: As follows; height of the patient 5 feet, weight of the patient 172 pounds, body mass index 33.6 kg/m2. Rest of the examination; heart rate 60, blood pressure 130/70. HEENT: PERRLA. Extraocular muscles intact. NECK: Supple. No carotid bruits or thyromegaly. CHEST: Clear to auscultation. HEART: S1 and S2 regular. ABDOMEN: Soft. EXTREMITIES: Clubbing and cyanosis negative. LABORATORY DATA: Blood workup, pending. IMPRESSION AND PLAN: Atrial fibrillation - new-onset, history of coronary artery disease, status post acute coronary syndrome, status post unstable angina, history of percutaneous transluminal coronary angioplasty of anomalus right coronary artery with drug eluting stent on 04/02/2017. Recent stress test negative dated 01/25/2018, ejection fraction 60%, fixed defect. Electrocardiogram shows atrial fibrillation, bilateral carotid 20% to 29% stenosis. Echo shows ejection fraction of 60%, mild pulmonary insufficiency, ydrd-zu-mdfrwjvl tricuspid regurgitation, mitral regurgitation. Patient admitted with new-onset atrial fibrillation. We will do the transesophageal echocardiography cardioversion. Risks, benefits and alternatives explained to the patient. Patient agreed. We will proceed for transesophageal echocardiography cardioversion. Further recommendation will depend upon the hospital course. We will get electrocardiogram now, and if patient remains in atrial fibrillation, we will proceed for transesophageal echocardiography cardioversion. Bree Dennis MD
[2018-02-07] MEDS ORDERED: Midazolam 2 MG/2 ML VIAL ONE (11:53)
[2018-02-07] MEDS ORDERED: Metoprolol 1 mg/ml Inj IVP ONE ×2 (11:54→12:40)
[2018-02-07] MEDS ORDERED: Flumazenil 0.1 mg/ml Inj (5ml) IVP ONE (11:54)
[2018-02-07] MEDS ORDERED: Naloxone 0.4 mg/ml Inj (Adult) ONE (11:54)
[2018-02-07] MEDS ORDERED: Midazolam 2 MG/2 ML VIAL IV ONE ×3 (12:17→12:32)
[2018-02-07] MEDS ORDERED: Sodium Chloride 0.9% 1,000 ML IV SCH (12:45)
[2018-02-07 14:01] VITALS: BP 115/53; PULSE 63; RESP 20; TEMP 97.3; O2SAT 90
--- NOTE | 2018-02-07 17:31 | CARD ---
APPROVED REPORT Date of service: 02/07/2018 EXAM: Transesophageal echocardiogram with color flow Doppler and Synchronized Cardioversion. INDICATION Atrial Fibrillation 2D DIMENSIONS LVOT Diameter1.8 (1.8-2.4cm) Aortic Valve AoV Peak Lejhvfyo094.0cm/[place] Peak GR.15mmHgLVOT Peak Bwlrvukm64.1cm/s LVOT VTI17.10cmAVA (VMAX)1.27cm2 Mitral Valve E/A ratio0.0 TDI E/Lateral E'0.0E/Medial E'0.0 Tricuspid Valve TR Peak Ndldvhjf092ku/sRAP VBLVGHIB87qcViBE Peak Gr.9mmHg GTHB38dmWl Reason For Test : VICKY and cardioversion PROCEDURE After obtaining informed consent, patient underwent transesophageal echo in the Echo Lab. Type of Sedation : Conscious Sedation Sedation was administered by Dr. dawson. Sedation was achieved with Versed and , Fentanyl 3 mg and 150 mcg intravenously. Transesophageal probe was inserted and advanced into esophagus without difficulty. Echo enhancement indication: R/O Septal defect. Echo enhancement agent administered: Agitated Saline The VICKY was performed without complications. Synchronized Cardioversion attempted: Successful Synchronized Cardioversion acheived with 200 Joules after first attempt(s). Rhythm following Synchronized Cardioversion: Throughout the procedure, the blood pressure, pulse oximetry, cardiac rhythm, and rate were monitored. The patient tolerated the procedure without adverse effects. Recovery from conscious sedation was uneventful and vital signs were stable. LEFT VENTRICLE The left ventricle is normal size. There is normal left ventricular wall thickness. The left ventricular function is normal.EF -55% ( a fib) There is normal LV segmental wall motion. a fib No left ventricle thrombus noted on this study. There is no ventricular septal defect visualized. There is no left ventricular aneurysm. There is no mass noted in the left ventricle. RIGHT VENTRICLE The right ventricle is mildly dilated. There is normal right ventricular wall thickness. The right ventricular systolic function is normal. ATRIA The left atrium is mildly dilated. The right atrium is mildly dilated. The interatrial septum is intact with no evidence for an atrial septal defect. AORTIC VALVE The aortic valve is moderately sclerotic. There is trace aortic regurgitation. There is mild to moderate valvular aortic stenosis. MARY LOU by planimetry 1.2 cm2 and continuity 1.3 cm2 There is no aortic valvular vegetation. MITRAL VALVE The mitral valve leaflets are thickened. There is no evidence of mitral valve prolapse. There is no mitral valve stenosis. Mitral regurgitation is moderate. TRICUSPID VALVE The tricuspid valve leaflets display thickening. There is mild tricuspid regurgitation.RVSP-19 mmof Hg. There is no tricuspid valve prolapse or vegetation. There is no tricuspid valve stenosis. PULMONIC VALVE The pulmonary valve is normal in structure. There is trace pulmonic valvular regurgitation. There is no pulmonic valvular stenosis. GREAT VESSELS The aortic root is normal in size. The ascending aorta is normal in size. The pulmonary artery is normal. The IVC is normal in size and collapses >50% with inspiration. PERICARDIAL EFFUSION There is a trace pericardial effusion. There is no pleural effusion. <Conclusion> Mildly Dilated RA/RV/LA Preserved LV FX. EF-55% Mild to Moderate MARY LOU 1.2-1.3 cm2 Moderate MR mild TR , RVSP-19 mmof Hg. Moderate plaque in descending aorta. Velocity in ALEKSANDR, 0.4 m/s 200 Joules synchronized Cardioversion done , pt converted to NSR. Recommendation: continue anti coagulation 2-4 weeks if remains in NSR. cc; dr. Isaiah Mallory DO.
--- NOTE | 2018-02-07 18:53 | CARD ---
APPROVED REPORT Date of service: 02/07/2018 EKG Measurement Heart [id number] [place] 224P [id number] <Conclusion> Sinus rhythm with 1st degree AV block Nonspecific T wave abnormality Abnormal ECG
--- NOTE | 2018-02-07 18:57 | CARD ---
APPROVED REPORT Date of service: 02/07/2018 EKG Measurement Heart [id number] <Conclusion> Atrial fibrillation Abnormal ECG
== END 2018-02-07 15:40 | disposition home or self-care (01) ==
LOC: TEE 09:30
PROVIDERS: ATTEND Internal Medicine Cardiovascular Disease
DX: I48.91 Unspecified atrial fibrillation (principal); I44.0 Atrioventricular block, first degree; I08.1 Rheumatic disorders of both mitral and tricuspid valves; J98.4 Other disorders of lung; I25.118 Atherosclerotic heart disease of native coronary artery with other forms of angina pectoris; Z95.5 Presence of coronary angioplasty implant and graft
CPT/HCPCS: 92960; 93005; 93312; J2250; J3010; J7030

== ENCOUNTER 2018-02-08 02:07 | Inpatient (IN) | payer MEDICARE ==
[2018-02-08 02:08] VITALS: BMI 33.5
--- NOTE | 2018-02-08 02:21 | ED PDOC ---
Arrival/HPI - General Time Seen by Provider: 02/08/18 02:13 Historian: Patient - Critical Care Critical Care Minutes: 90 minutes - History of Present Illness Narrative History of Present Illness (Text): 02/08/18 02:02 87 year old female, whose past medical history includes hypertension, hyperlipdemia, acute coronary syndrome, PTCA of anomalous right coronary artery on 04/02/17, gallstones, presents to the emergency department by EMS complaining of sudden onset of shortness of breath that woke her up in the middle of the night. Patient received 3 Nitrosprays and 20ml of Lasix on the field and was brought in on CPAP. Patient is unable to lay flat. Patient had a VICKY with cardioversion of A-Fib done yesterday. Patient denies any fever, chills , cough, chest pain, nausea, vomiting, diarrhea, urinary symptoms, back pain, neck pain, headache, dizziness, or any other complaints. PMD: Dr. Mallory Time/Duration: 1 hour Symptom Onset: Gradual Symptom Course: Unchanged Activities at Onset: Light Context: Home Past Medical History - Provider Review Nursing Documentation Reviewed: Yes - Tetanus Immunization Tetanus Immunization: Unknown - Cardiac Hx Pacemaker: No - Pulmonary Hx Respiratory Disorders: No - Neurological Hx Paralysis: No - HEENT Hx HEENT Disorder: Yes ("WRINKLED RETINA") Hx Cataracts: Yes Hx Deafness: Yes - Renal Hx Renal Disorder: Yes Hx Kidney Stones: Yes - Endocrine/Metabolic Hx Endocrine Disorders: No - Hematological/Oncological Hx Blood Transfusions: No - Integumentary Hx Dermatological Disorder: Yes Hx Eczema: Yes (H/O) - Musculoskeletal/Rheumatological Hx Musculoskeletal Disorders: Yes - Gastrointestinal Hx Gastrointestinal Disorders: Yes Hx Gall Bladder Disease: Yes (CHOLECYSTITIS,GALLSTONES) - Psychiatric Hx Emotional Abuse: No Hx Physical Abuse: No Hx Substance Use: No - Surgical History Hx Musculoskeletal Surgery: Yes (R HIP, BILAT KNEES) - Anesthesia Hx Anesthesia Reactions: No Hx Malignant Hyperthermia: No - Suicidal Assessment Feels Threatened In Home Enviroment: No Family/Social History - Physician Review Nursing Documentation Reviewed: Yes Family/Social History: No Known Family HX Smoking Status: Never Smoked Hx Alcohol Use: Yes (SOCIALLY/OCCASIONALLY) Hx Substance Use: No Allergies/Home Meds Allergies/Adverse Reactions: Allergies latex Allergy (Verified 04/01/17 10:42) SWELLING Home Medications: Home Meds Medication Instructions Recorded Confirmed Losartan/Hydrochlorothiazide 12.5 mg PO DAILY 03/14/17 02/08/18 [Losartan-Hctz 50-12.5 mg Tab] amLODIPine [Norvasc] 5 mg PO DAILY 03/14/17 02/08/18 Aspirin [Adult Low Dose Aspirin EC] 81 mg PO DAILY 01/28/18 02/08/18 Metoprolol Tartrate [Lopressor] 50 mg PO BID 01/28/18 02/08/18 Simvastatin [Zocor] 20 mg PO DAILY 01/28/18 02/08/18 Apixaban [Eliquis] 5 mg PO BID 02/01/18 02/08/18 Multivit-Min/FA/Lycopen/Lutein 1 tab PO DAILY 02/01/18 02/08/18 [Centrum Silver Tablet] Review of Systems - Physician Review All systems were reviewed & negative as marked: Yes - Review of Systems Constitutional: absent: Fevers, Other (Chills) Respiratory: SOB Cardiovascular: absent: Chest Pain Gastrointestinal: absent: Diarrhea, Nausea, Vomiting Genitourinary Female: absent: Dysuria, Frequency, Hematuria Musculoskeletal: absent: Back Pain, Neck Pain Neurological: absent: Headache, Dizziness Physical Exam Vital Signs Reviewed: Yes Vital Signs Temp Pulse Resp BP Pulse Ox 02/08/18 04:07 77 18 119/59 L 95 02/08/18 02:47 95 H 18 128/64 97 02/08/18 02:30 98.1 F 90 22 141/101 H 97 02/08/18 02:14 141/101 H Temperature: Afebrile Blood Pressure: Hypertensive Pulse: Tachycardic Respiratory Rate: Normal Appearance: Positive for: Well-Appearing, Non-Toxic, Comfortable Pain Distress: Other (Mild to moderate) Mental Status: Positive for: Alert and Oriented X 3 - Systems Exam Head: Present: Atraumatic, Normocephalic Pupils: Present: PERRL Extroacular Muscles: Present: EOMI Conjunctiva: Present: Normal Mouth: Present: Moist Mucous Membranes Neck: Present: Normal Range of Motion Respiratory/Chest: Present: Rales (rales bialterally three quarters of way up). No: Accessory Muscle Use Cardiovascular: Present: Tachycardic. No: Murmurs Abdomen: No: Tenderness, Distention, Peritoneal Signs Back: Present: Normal Inspection Upper Extremity: Present: Normal Inspection. No: Cyanosis, Edema Lower Extremity: Present: Edema (trace lower extremity edema) Neurological: Present: GCS=15, CN II-XII Intact, Speech Normal Skin: Present: Warm, Dry, Normal Color. No: Rashes Psychiatric: Present: Alert, Oriented x 3, Normal Insight, Normal Concentration Medical Decision Making ED Course and Treatment: 02/08/18 02:02 Impression: 87 year old female presents complaining of sudden on set of shortness of breath that woke her up. Patient had a VICKY with cardioversion of A-Fib done yesterday. Plan: -- ABG, VBG -- EKG -- Labs -- Chest X-ray -- Lasix -- BIPAP/CPAP -- Reassess and disposition Prior Visits: Notes and results from previous visits were reviewed. Patient was last seen in the emergency department on 04/01/17 presents complaining of mid-sternal chest discomfort that began 21 days ago. Patient was admitted. Progress Notes: BIPAP continue in the Emergency room. Waned down to Nasal Cannula. Additional Lasix given. EKG shows Sinus rhythm at 86 BPM. Interpreted by me. 02/08/18 04:27 CXR Impression: As read by me, [facility] 02/08/18 03:53 Case discussed with medical claims specialist and Dr. Chauhan who is aware and agrees with the plan. Accepts patient into hospitalist service. - Critical Care Critical Care Minutes: 60 minutes - Lab Interpretations Lab Results: 02/08/18 02:24 02/08/18 02:24 Lab Results 02/08/18 02:50: Urine Color Dark yellow, Urine Appearance Cloudy, Urine pH 6.0, Ur Specific [place] 1.015, Urine Protein 100 H, Urine Glucose (UA) Negative, Urine Ketones Negative, Urine Blood Large H, Urine Nitrate Positive H, Urine Bilirubin Negative, Urine Urobilinogen 0.2, Ur Leukocyte Esterase Large H, Urine RBC Tntc, Urine WBC 15 - 20, Ur Epithelial Cells 0 - 2, Urine Bacteria Many 02/08/18 02:28: pCO2 40, pO2 87.0, HCO3 24.2, ABG pH 7.39, ABG Total CO2 25.4, ABG O2 Saturation 98.7 H, ABG O2 Content 16.8, ABG Base Excess -0.7, ABG Hemoglobin 12.5, ABG Carboxyhemoglobin 2.3 H, POC ABG HHb (Measured) 1.3, ABG Methemoglobin 1.2, ABG O2 Capacity 17.0, Hgb O2 Saturation 95.2, FiO2 50.0 02/08/18 02:24: Sodium 140, Chloride 100, Potassium 3.9, Carbon Dioxide 27, Anion Gap 17, BUN 23 H, Creatinine 0.7, Est GFR ( Amer) > 60, Est GFR ( Non-Af Amer) > 60, Random Glucose 176 H, Calcium 10.5, Magnesium 1.6 L, Total Bilirubin 0.9, AST 60 H D, ALT 45, Alkaline Phosphatase 83, Lactate Dehydrogenase 591, Total Creatine Kinase 28 L, Troponin I 0.01 D, NT-Pro-B Natriuret Pep 990 H, Total Protein 6.9, Albumin 4.1, Globulin 2.8, Albumin/ Globulin Ratio 1.5 02/08/18 02:24: pO2 52, VBG pH 7.29 L, VBG pCO2 59.0, VBG HCO3 28.4 H, VBG Total CO2 30.2 H, VBG O2 Sat (Calc) 87.0 H, VBG Base Excess 0.5, VBG Potassium 4.5, Sodium 137.0, Chloride 101.0, Glucose 186 H, Lactate 2.5 H, FiO2 21.0, Venous Blood Potassium 4.5 02/08/18 02:24: WBC 14.9 H D, RBC 4.76, Hgb 13.7 D, Hct 41.7, MCV 87.6, MCH 28.8, MCHC 32.9, RDW 12.9, Plt Count 397, MPV 10.3, Gran % 69.2 H, Lymph % (Auto ) 19.5 L, [place] % (Auto) 9.0 H, Eos % (Auto) 2.2, Baso % (Auto) 0.1, Gran # 10.27 H, Lymph # (Auto) 2.9, [place] # (Auto) 1.3 H, Eos # (Auto) 0.3, Baso # (Auto ) 0.02 02/08/18 02:24: PT 15.5 H, INR 1.35 H, APTT 30.4 I have reviewed the lab results: Yes - RAD Interpretation Radiology Orders: 02/08/18 02:30 CHEST PORTABLE [RAD] Stat - EKG Interpretation Interpreted by ED Physician: Yes Type: 12 lead EKG - Medication Orders Current Medication Orders: Apixaban (Eliquis) 5 mg PO BID LINDA PRN Reason: Protocol Aspirin (Ecotrin) 81 mg PO DAILY LNIDA Atorvastatin Calcium (Lipitor) 10 mg PO DIN LINDA Furosemide (Lasix) 40 mg IVP DAILY LINDA Hydrochlorothiazide (Microzide) 12.5 mg PO DAILY LINDA Magnesium Sulfate (Magnesium Sulfate 2 Gm/50 Ml Water) 2 gm in 50 mls @ 50 mls/ hr IVPB ONCE ONE Stop: 02/08/18 06:18 Losartan Potassium (Cozaar) 50 mg PO DAILY LINDA Multivitamins/Minerals (Therapeutic-M Tab) 1 tab PO DAILY LINDA Pantoprazole Sodium (Protonix Ec Tab) 40 mg PO 0600 LINDA Discontinued Medications Furosemide (Lasix) 40 mg IVP STAT STA Stop: 02/08/18 02:31 Last Admin: 02/08/18 02:14 Dose: 40 mg MAR Blood Pressure Document 02/08/18 02:14 AD (Rec: 02/08/18 02:47 [id number] Blood Pressure Blood Pressure (100/60-150/90) 141/101 IVP Administration Document 02/08/18 02:14 AD (Rec: 02/08/18 02:47 AD [id number]) Charges for Administration # of IVP Administrations 1 Ceftriaxone Sodium (Rocephin 1 Gram Ivpb) 1 gm in 100 mls @ 100 mls/hr IVPB DAILY LINDA PRN Reason: Protocol Ceftriaxone Sodium (Rocephin 1 Gram Ivpb) 1 gm in 100 mls @ 100 mls/hr IVPB STAT STA PRN Reason: Protocol Stop: 02/08/18 05:19 Last Admin: 02/08/18 04:40 Dose: 100 mls/hr eMAR Start Stop Document 02/08/18 04:40 AD (Rec: 02/08/18 04:40 AD [id number]) Intravenous Solution Start Date 02/08/18 Start Time 04:40 Metoprolol Tartrate (Lopressor) 25 mg PO BID STA Stop: 02/08/18 05:22 - Scribe Statement The provider has reviewed the documentation as recorded by the Scribe Alaa Bamberg Provider Eli Attestation: All medical record entries made by the Eli were at my direction and personally dictated by me. I have reviewed the chart and agree that the record accurately reflects my personal performance of the history, physical exam, medical decision making, and the department course for this patient. I have also personally directed, reviewed, and agree with the discharge instructions and disposition. Disposition/Present on Arrival - Present on Arrival Any Indicators Present on Arrival: No History of DVT/PE: No History of Uncontrolled Diabetes: No Urinary Catheter: No History Surgical Site Infection Following: None - Disposition Have Diagnosis and Disposition been Completed?: Yes Diagnosis: Acute exacerbation of CHF (congestive heart failure) Disposition: HOSPITALIZED Disposition Time: 03:00 Condition: FAIR
[2018-02-08 02:44] LABS: BASO # 0.02 K/mm3 (0.0-2.0); BASO % 0.1 % (0.0-3.0); EOS # 0.3 (0.0-0.7); EOS % 2.2 % (1.5-5.0); GRAN # 10.27 (1.4-6.5); GRAN % 69.2 % (50.0-68.0); HEMOGLOBIN 13.7 g/dL (12.0-16.0); LYMPH # 2.9 (1.2-3.4); LYMPH % 19.5 % (22.0-35.0); MEAN CELL VOLUME 87.6 fl (80.0-105.0); MEAN CORPUSCULAR HEMOGLOBIN 28.8 pg (25.0-35.0); MEAN CORPUSCULAR HGB CONC 32.9 g/dl (31.0-37.0); MEAN PLATELET VOLUME 10.3 fl (7.0-11.0); MONO # 1.3 (0.1-0.6); RBC 4.76 10^6/uL (3.5-6.1); RED CELL DISTRIBUTION WIDTH 12.9 % (11.5-14.5); WHITE BLOOD COUNT 14.9 10^3/ul (4.5-11.0)
[2018-02-08 02:47] LABS: VENOUS BLOOD GAS BASE EXCESS 0.5 mmol/L (0.0-2.0); VENOUS BLOOD GAS PO2 52 mm/Hg (30-55); VENOUS BLOOD PH 7.29 (7.32-7.43)
[2018-02-08 02:49] LABS: ARTERIAL BLOOD GAS HCO3 24.2 mmol/L (21-28); ARTERIAL BLOOD GAS HEMOGLOBIN 12.5 g/dL (11.7-17.4); ARTERIAL BLOOD GAS O2 CONTENT 16.8 ML/dl (15-23); ARTERIAL BLOOD GAS O2 SAT 98.7 % (95-98); ARTERIAL BLOOD GAS PCO2 40 mm/Hg (35-45); ARTERIAL BLOOD GAS PH 7.39 (7.35-7.45); ARTERIAL BLOOD GAS TCO2 25.4 mmol.L (22-28)
[2018-02-08 02:50] LABS: ALB/GLOB RATIO 1.5 (1.1-1.8); ALBUMIN 4.1 g/dL (3.0-4.8); ALT/SGPT 45 U/L (7-56); AST/SGOT 60 U/L (14-36); BLOOD UREA NITROGEN 23 mg/dL (7-21); CALCIUM 10.5 mg/dL (8.4-10.5); GFR AFRICAN-AMERICAN > 60; GFR NON-AFRICAN AMERICAN > 60; INR 1.35 (0.93-1.08); PROTHROMBIN TIME 15.5 SECONDS (9.4-12.5)
[2018-02-08 02:51] LABS: PARTIAL THROMBOPLASTIN TIME 30.4 Seconds (25.1-36.5)
[2018-02-08 03:02] LABS: B-TYPE NATRIURETIC PEPTIDE 990 pg/mL (0-450); TROPONIN I 0.01 ng/mL
[2018-02-08 03:38] LABS: URINE BILIRUBIN NEGATIVE (NEGATIVE); URINE BLOOD LARGE (NEGATIVE); URINE GLUCOSE (UA) NEGATIVE (NEGATIVE); URINE LEUKOCYTE ESTERASE LARGE Leu/uL (NEGATIVE); URINE PROTEIN 100 mg/dL (<30 mg/dL); URINE UROBILINOGEN 0.2 E.U./dL (<1 E.U./dL)
[2018-02-08 03:59] LABS: URINE APPEARANCE CLOUDY (CLEAR); URINE COLOR DARK YELLOW (YELLOW)
[2018-02-08 04:00] LABS: URINE RBC TNTC /hpf (0-2)
[2018-02-08 04:01] LABS: URINE BACTERIA MANY (NEG); URINE EPITHELIAL CELLS 0 - 2 /hpf (0-5); URINE WBC 15 - 20 /hpf (0-6)
[2018-02-08] MEDS ORDERED: cefTRIAXone 1 gm 1 GM/100 ML BAG IVPB STA (04:20)
[2018-02-08] MEDS ORDERED: Magnesium Sulfate 2 gm/50 ml 2 GM/50 ML BAG IVPB ONE (05:19)
--- NOTE | 2018-02-08 05:32 | CP.PCM.HP ---
<Yon Roa - Last Filed: 02/08/18 06:21> History of Present Illness - History of Present Illness History of Present Illness: Yon Roa DO PGY1 Internal Medicine Hiv Counselor - Hospital H&P CC: SOB/ALEGRE 87F w/ PMH of HTN, HLD, Nephrolithiasis w/ stent (04/01), and Cardiac hx significant for CAD s/p PTCA w/ drug eluting stent in RCA (04/01), New onset Afib diagnosed 01/30/18 s/p VICKY Cardioversion on 02/07/18 by Bree Luque Presented to [facility] on [place]07 w/ CC of new onset SOB/ Dyspnea. She is known to Dr. Dennis, and was recently diagnosed w/ new onset Afib during stress test which revealed EF of 61%, moderate mitral regurgitation, moderate tricuspid regurgitation, and no diastolic dysfunction. Echo from 02/07/18 revealed similar findings of EF 55%, Moderate MR, Moderate TR; No mention of diastolic dysfunction; she was successfully cardioverted to NSR. Pt. stated that after her discharge from VICKY w/ cardioversion on 02/07 she had no issues at home; performed ADLs and ambulated well w/ no SOB/ALEGRE. She was awoken after midnight to urinate, and began feeling difficulty breathing. She denies any improvement with rest or worsening w/ activity. She does report a similar episode ~2 weeks ago. Denies any associated Fever, chills, cough, chest pain, palpitations, abd pain, N/V/D/C, urinary complaints, numbness/tingling, focal weakness. Denies any new onset weight gain or LE edema. Pt. reports taking all of her home medications Remainder of 12 system ROS otherwise negative. PMD: Dr. Ameena Rapp PMH: as above PSH: BL knee sx, R hip replacement Social: Social EtOH 1drink/mo, Denies any hx of smoking/tobacco use, denies illicit drug use, Pt. lives alone, ambulates w/o use of walker/ cane; performs ADL on her own Allergies: Latex Fam Hx: Father passed from heart disease 55YO In ED: VSS; CBC: WBC 14.9 CMP: BUN 23; BNP: 990 Troponin: negative EKG: Initial EKG w/ PACs however follow up EKG NSR; no ST / T wave changes noted CXR: Diffuse R sided consolidation; Cephalization Given Lasix 40mg IVP, Rocephin 1gm x1 Present on Admission - Present on Admission Any Indicators Present on Admission: No Review of Systems - Review of Systems All systems: reviewed and no additional remarkable complaints except Review of Systems: as per HPI Past Patient History - Tetanus Immunizations Tetanus Immunization: Unknown - Past Social History Smoking Status: Never Smoked - CARDIAC Hx Pacemaker: No - PULMONARY Hx Respiratory Disorders: No - NEUROLOGICAL Hx Paralysis: No - HEENT Hx HEENT Problems: Yes ("WRINKLED RETINA") Hx Cataracts: Yes Hx Deafness: Yes - RENAL Hx Chronic Kidney Disease: Yes Hx Kidney Stones: Yes - ENDOCRINE/METABOLIC Hx Endocrine Disorders: No - HEMATOLOGICAL/ONCOLOGICAL Hx Blood Transfusions: No - INTEGUMENTARY Hx Dermatological Problems: Yes Hx Eczema: Yes (H/O) - MUSCULOSKELETAL/RHEUMATOLOGICAL Hx Musculoskeletal Disorders: Yes - GASTROINTESTINAL Hx Gastrointestinal Disorders: Yes Hx Gall Bladder Disease: Yes (CHOLECYSTITIS,GALLSTONES) - PSYCHIATRIC Hx Emotional Abuse: No Hx Physical Abuse: No Hx Substance Use: No - SURGICAL HISTORY Hx Musculoskeletal Surgery: Yes (R HIP, BILAT KNEES) - ANESTHESIA Hx Anesthesia Reactions: No Hx Malignant Hyperthermia: No Meds Allergies/Adverse Reactions: Allergies Allergy/AdvReac Type Severity Reaction Status Date / Time latex Allergy SWELLING Verified 04/01/17 10:42 Physical Exam - Constitutional Appears: Well, Non-toxic, No Acute Distress - Head Exam Head Exam: ATRAUMATIC, NORMOCEPHALIC - Eye Exam Eye Exam: EOMI, Normal appearance, PERRL. absent: Scleral icterus - ENT Exam ENT Exam: Mucous Membranes Moist, Normal Exam Additional comments: Posterior oropharynx erythematous w/o discharge; ML 2/2 VICKY - Neck Exam Neck exam: Positive for: Normal Inspection Additional comments: NO JVD, No carotid bruit - Respiratory Exam Additional comments: Crackles in RML and RLL; other lung beltran clear to auscultation; regular inspiratory/expiratory pattern; no wheezes - Cardiovascular Exam Cardiovascular Exam: +S1, +S2, Systolic Murmur (Pulmonic post, Mitral post both 3/6) - GI/Abdominal Exam GI & Abdominal Exam: Soft. absent: Tenderness - Extremities Exam Extremities exam: Positive for: normal inspection, pedal pulses present. Negative for: pedal edema - Back Exam Back exam: absent: CVA tenderness (L), CVA tenderness (R) - Neurological Exam Neurological exam: Alert, CN II-XII Intact, Oriented x3 - Psychiatric Exam Psychiatric exam: Normal Affect, Normal Mood - Skin Skin Exam: Dry, Intact, Warm Results - Vital Signs Recent Vital Signs: Last Vital Signs Temp 98.1 F 02/08/18 02:30 Pulse 77 02/08/18 04:07 Resp 18 02/08/18 04:07 BP 119/59 L 02/08/18 04:07 Pulse Ox 95 02/08/18 04:07 - Labs Result Diagrams: 02/08/18 02:24 02/08/18 02:24 Assessment & Plan - Assessment and Plan (Free Text) Assessment: 87F w/ PMH of HTN, HLD, Nephrolithiasis w/ stent (04/01), and Cardiac hx significant for CAD s/p PTCA w/ drug eluting stent in RCA (04/01), New onset Afib diagnosed 01/30/18 s/p VICKY Cardioversion on 02/07/18 by Bree Luque Presented to [facility] on 02/07 w/ CC of new onset SOB/ Dyspnea. SOB/ALEGRE Most likely 2/2 new onset CHF vs Pneumonia vs ACS less likely RLL consolidation + crackles on exam f/u AM labs f/u Procal First troponin negative; cont trending Q6H Started Lasix 40 meq QD C/w Home Losartan HCTZ 50-12.5 QD Continue Ceftriaxone 1gm QD Started Azithromycin QD Strict IO, Daily Weight, Salt Restricted diet Cardiology Bree Luque consulted Hx Afib s/p VICKY w/ electro cardioversion 02/08 c/w eliquis 4 BID c/w metoprolol 25 BID Cardiology consulted Hx CAD s/p PTCA of RCA w/ stent Troponin monitoring as above ASA 81mg Statin as below C/w cardiology reccs Hx HTN Hold home alodopine 5 QD Monitor and restart as needed Hx HLD c/w home simvastatin 20 QD DVT/GI PPX: SCD/ Protonix Dispo: Continue medical workup and management of afib on telemetry Case discussed w/ attending physician Dania Aparicio DO PGY1 Internal Medicine Hiv Counselor - Date & Time Date: 02/08/18 Time: 06:26 <Dania Chauhan - Last Filed: 02/08/18 07:01> Results - Vital Signs Recent Vital Signs: Last Vital Signs Temp 98.1 F 02/08/18 02:30 Pulse 78 02/08/18 06:04 Resp 20 02/08/18 05:52 BP 129/63 02/08/18 06:04 Pulse Ox 99 02/08/18 05:30 - Labs Result Diagrams: 02/08/18 02:24 02/08/18 02:24 Attending/Attestation - Attestation I have personally seen and examined this patient.: Yes I have fully participated in the care of the patient.: Yes I have reviewed all pertinent clinical information: Yes Notes (Text): 02/08/18 06:59 Pt with acute pul. Vascular congestion in setting of VICKY/Cardioversion for Afib. CXR - cannot rule out Infiltrate. R/o ACS, acute CHF and coverage for CAp. Plan of care discussed with Resident
[2018-02-08] MEDS: Pantoprazole 40 mg EC Tab PO SCH (06:04)
[2018-02-08 07:29] LABS: BASO # 0.01 K/mm3 (0.0-2.0); BASO % 0.1 % (0.0-3.0); EOS % 0.2 % (1.5-5.0); GRAN # 9.66 (1.4-6.5); GRAN % 80.8 % (50.0-68.0); HEMOGLOBIN 12.9 g/dL (12.0-16.0); LYMPH # 0.9 (1.2-3.4); LYMPH % 7.9 % (22.0-35.0); MEAN CELL VOLUME 86.8 fl (80.0-105.0); MEAN CORPUSCULAR HEMOGLOBIN 28.5 pg (25.0-35.0); MEAN CORPUSCULAR HGB CONC 32.8 g/dl (31.0-37.0); MEAN PLATELET VOLUME 9.8 fl (7.0-11.0); MONO # 1.3 (0.1-0.6); RBC 4.53 10^6/uL (3.5-6.1); RED CELL DISTRIBUTION WIDTH 12.9 % (11.5-14.5)
[2018-02-08 07:42] LABS: VENOUS BLOOD GAS PO2 35 mm/Hg (30-55)
[2018-02-08 07:44] LABS: BLOOD UREA NITROGEN 22 mg/dL (7-21); GFR AFRICAN-AMERICAN > 60; GFR NON-AFRICAN AMERICAN > 60
[2018-02-08 07:45] LABS: ALB/GLOB RATIO 1.4 (1.1-1.8); ALBUMIN 3.9 g/dL (3.0-4.8); ALT/SGPT 47 U/L (7-56); AST/SGOT 43 U/L (14-36); CALCIUM 10.1 mg/dL (8.4-10.5)
[2018-02-08 08:12] LABS: TROPONIN I 0.16 ng/mL
[2018-02-08] MEDS ORDERED: Potassium Chloride 20 mEq ER Tab PO STA (08:28)
[2018-02-08] MEDS ORDERED: Albuterol-Ipratrop 3 mg / 0.5 (3 ml) UD IH PRN (08:32)
--- NOTE | 2018-02-08 09:06 | RAD ---
Date of service: 02/08/2018 HISTORY: CHF COMPARISON: 04/01/2017 FINDINGS: LUNGS: No active pulmonary disease. PLEURA: No significant pleural effusion identified, no pneumothorax apparent. CARDIOVASCULAR: Mild cardiomegaly. Moderate vascular congestion OSSEOUS STRUCTURES: No significant abnormalities. VISUALIZED UPPER ABDOMEN: Normal. OTHER FINDINGS: None. IMPRESSION: Mild cardiomegaly. Moderate vascular congestion
[2018-02-08] MEDS ORDERED: cefTRIAXone 1 gm 1 GM/100 ML BAG IVPB SCH (10:00)
[2018-02-08] MEDS: Multivitamin With Minerals Tab PO SCH (10:07)
[2018-02-08] MEDS: Azithromycin 500MG/NS 250ml 500 MG/250 ML BAG IVPB SCH (10:07)
--- NOTE | 2018-02-08 10:07 | CT ---
Date of service: 02/08/2018 PROCEDURE: HISTORY: shortness of breath COMPARISON: None TECHNIQUE: FINDINGS: Large bilateral pleural effusions with compressive atelectasis at the lung bases. Mild cardiomegaly with minimal pericardial fluid. No significant mediastinal lymphadenopathy. The remainder of the lungs are clear. The proximal tracheobronchial tree is patent. IMPRESSION: Large bilateral pleural effusions and compressive atelectasis at the lung bases, with mild cardiomegaly compatible with CHF.
[2018-02-08] MEDS: Albuterol-Ipratrop 3 mg / 0.5 (3 ml) UD IH SCH ×2 (13:53→21:00)
--- NOTE | 2018-02-08 16:13 | CP.PCM.CON ---
History of Present Illness - History of Present Illness History of Present Illness: PULMONARY CONSULT NOTE HPI Patient is 77yo female with PMHx of HTN, HLD, CAD s/p PCI with stents, new onset Afib with VICKY cardioversion yesterday, presented with sudden onset of SOB. pt reports she was doing well yesterday when she felt "congested, short of breath" , and presented to the hospital. Pt denies fever, chills, cough, chest pain, palpitations, N/V/D, abd pain. No other constitutional symptoms. CXR with pulm vasc congestion, CT chest with bilat effusions. Since admission and being started on Lasix patient reports she feels significantly better. PMH: as above PSH: BL knee sx, R hip replacement Social: Social EtOH 1drink/mo, Denies any hx of smoking/tobacco use, denies illicit drug use, Pt. lives alone Allergies: Latex Fam Hx: Father ; heart disease 55yo Review of Systems - Review of Systems Review of Systems: as per HPI Past Patient History - Tetanus Immunizations Tetanus Immunization: Unknown - Past Social History Smoking Status: Never Smoked - CARDIAC Hx Pacemaker: No - PULMONARY Hx Respiratory Disorders: No - NEUROLOGICAL Hx Paralysis: No - HEENT Hx HEENT Problems: Yes ("WRINKLED RETINA") Hx Cataracts: Yes Hx Deafness: Yes - RENAL Hx Chronic Kidney Disease: Yes Hx Kidney Stones: Yes - ENDOCRINE/METABOLIC Hx Endocrine Disorders: No - HEMATOLOGICAL/ONCOLOGICAL Hx Blood Transfusions: No - INTEGUMENTARY Hx Dermatological Problems: Yes Hx Eczema: Yes (H/O) - MUSCULOSKELETAL/RHEUMATOLOGICAL Hx Musculoskeletal Disorders: Yes - GASTROINTESTINAL Hx Gastrointestinal Disorders: Yes Hx Gall Bladder Disease: Yes (CHOLECYSTITIS,GALLSTONES) - PSYCHIATRIC Hx Emotional Abuse: No Hx Physical Abuse: No Hx Substance Use: No - SURGICAL HISTORY Hx Musculoskeletal Surgery: Yes (R HIP, BILAT KNEES) - ANESTHESIA Hx Anesthesia Reactions: No Hx Malignant Hyperthermia: No Meds Allergies/Adverse Reactions: Allergies Allergy/AdvReac Type Severity Reaction Status Date / Time latex Allergy SWELLING Verified 04/01/17 10:42 - Medications Medications: Current Medications Albuterol/Ipratropium (Duoneb 3 Mg/0.5 Mg (3 Ml) Ud) 3 ml IH [id number] Last Admin: 02/08/18 13:53 Dose: 3 ml Albuterol/Ipratropium (Duoneb 3 Mg/0.5 Mg (3 Ml) Ud) 3 ml IH Q2H PRN PRN Reason: Shortness of Breath Apixaban (Eliquis) 5 mg PO BID [facility] PRN Reason: Protocol Last Admin: 02/08/18 10:07 Dose: 5 mg Aspirin (Ecotrin) 81 mg PO DAILY [facility] Last Admin: 02/08/18 10:07 Dose: 81 mg Atorvastatin Calcium (Lipitor) 10 mg PO DIN [facility] Furosemide (Lasix) 40 mg IVP DAILY [facility] Last Admin: 02/08/18 10:06 Dose: 40 mg Hydrochlorothiazide (Microzide) 12.5 mg PO DAILY [facility] Last Admin: 02/08/18 10:06 Dose: 12.5 mg Ceftriaxone Sodium (Rocephin 1 Gram Ivpb) 1 gm in 100 mls @ 100 mls/hr IVPB DAILY [facility] PRN Reason: Protocol Azithromycin (Zithromax 500mg In Ns) 500 mg in 250 mls @ 167 mls/hr IVPB DAILY [facility] PRN Reason: Protocol Last Admin: 02/08/18 10:07 Dose: 167 mls/hr Losartan Potassium (Cozaar) 50 mg PO DAILY [facility] Last Admin: 02/08/18 10:07 Dose: 50 mg Multivitamins/Minerals (Therapeutic-M Tab) 1 tab PO DAILY [facility] Last Admin: 02/08/18 10:07 Dose: 1 tab Pantoprazole Sodium (Protonix Ec Tab) 40 mg PO 0600 [facility] Last Admin: 02/08/18 06:04 Dose: 40 mg Physical Exam - Constitutional Appears: Non-toxic, No Acute Distress - Head Exam Head Exam: NORMAL INSPECTION - Eye Exam Eye Exam: Normal appearance - ENT Exam ENT Exam: Mucous Membranes Moist - Neck Exam Neck exam: Positive for: Full Rom - Respiratory Exam Respiratory Exam: Rales, NORMAL BREATHING PATTERN - Cardiovascular Exam Cardiovascular Exam: REGULAR RHYTHM, +S1, +S2 - GI/Abdominal Exam GI & Abdominal Exam: Normal Bowel Sounds, Soft - Extremities Exam Extremities exam: Positive for: pedal edema - Neurological Exam Neurological exam: Alert, Oriented x3 - Psychiatric Exam Psychiatric exam: Normal Mood - Skin Skin Exam: Normal Color, Warm Results - Vital Signs Recent Vital Signs: Last Vital Signs Temp 98.5 F 02/08/18 12:00 Pulse 73 02/08/18 12:00 Resp 18 07/27/18 12:00 BP 107/59 L 02/08/18 12:00 Pulse Ox 97 02/08/18 06:00 - Labs Result Diagrams: 02/08/18 07:15 02/08/18 07:15 Labs: Laboratory Results - last 24 hr 02/08/18 02/08/18 02/08/18 07:15 07:15 07:15 WBC 12.0 H RBC 4.53 Hgb 12.9 Hct 39.3 MCV 86.8 MCH 28.5 MCHC 32.8 RDW 12.9 Plt Count 321 MPV 9.8 Gran % 80.8 H Lymph % (Auto) 7.9 L [place] % (Auto) 11.0 H Eos % (Auto) 0.2 L Baso % (Auto) 0.1 Gran # 9.66 H Lymph # (Auto) 0.9 L [place] # (Auto) 1.3 H Eos # (Auto) 0.0 Baso # (Auto) 0.01 pO2 VBG pH VBG pCO2 VBG HCO3 VBG Total CO2 VBG O2 Sat (Calc) VBG Base Excess VBG Potassium Sodium 141 Chloride 100 Glucose Lactate FiO2 Potassium 3.4 L Carbon Dioxide 31 Anion Gap 14 BUN 22 H Creatinine 0.7 Est GFR ( Amer) > 60 Est GFR (Non-Af Amer) > 60 Random Glucose 145 H Calcium 10.1 Magnesium 2.2 Total Bilirubin 0.8 AST 43 H D ALT 47 Alkaline Phosphatase 77 Troponin I 0.16 H* D Total Protein 6.7 Albumin 3.9 Globulin 2.8 Albumin/Globulin Ratio 1.4 Procalcitonin 0.12 L Venous Blood Potassium 02/08/18 02/08/18 07:15 14:15 WBC RBC Hgb Hct MCV MCH MCHC RDW Plt Count MPV Gran % Lymph % (Auto) [place] % (Auto) Eos % (Auto) Baso % (Auto) Gran # Lymph # (Auto) [place] # (Auto) Eos # (Auto) Baso # (Auto) pO2 35 VBG pH 7.40 VBG pCO2 50.0 VBG HCO3 31.0 H VBG Total CO2 32.5 H VBG O2 Sat (Calc) 72.3 H VBG Base Excess 5.0 H VBG Potassium 3.1 L Sodium 140.0 Chloride 102.0 Glucose 150 H Lactate 1.4 FiO2 21.0 Potassium Carbon Dioxide Anion Gap BUN Creatinine Est GFR ( Amer) Est GFR (Non-Af Amer) Random Glucose Calcium Magnesium Total Bilirubin AST ALT Alkaline Phosphatase Troponin I 0.18 H* Total Protein Albumin Globulin Albumin/Globulin Ratio Procalcitonin Venous Blood Potassium 3.1 L - Imaging and Cardiology CT scan - chest Status: Image reviewed by me, Report reviewed by me Assessment & Plan - Assessment and Plan (Free Text) Assessment: 87yo female a.w SOB SOB Pleural Effusions Afib s/p VICKY cardioversion CHF - currently afebrile, BP stable, comfortable in NAD, doing well on 2LNC, reports singificant improvement in resp status since admission and IV Lasix - bilat pleural effusions, likely 2/2 cardiac dysfunction - pt denies smoking, etoh, weight loss, hemoptysis - cont with IV diuresis - follow up cardiology - monitor O2 sat - Duonebs PRN - OOB to chair, PT/OT - GI ppx - DVT ppx - pulm will cont to follow
--- NOTE | 2018-02-08 17:33 | CARD ---
APPROVED REPORT Date of service: 02/08/2018 EKG Measurement Heart [id number] [place] [id number] <Conclusion> Poor data quality, interpretation may be adversely affected Normal sinus rhythm Normal ECG
--- NOTE | 2018-02-08 17:37 | CARD ---
APPROVED REPORT Date of service: 02/08/2018 EKG Measurement Heart [id number] [place] [id number] <Conclusion> Normal sinus rhythm Septal infarct, age undetermined Abnormal ECG
--- NOTE | 2018-02-08 17:37 | CARD ---
APPROVED REPORT Date of service: 02/08/2018 EKG Measurement Heart [id number] [place] [id number] <Conclusion> Sinus tachycardia with premature atrial complexes Septal infarct, age undetermined Abnormal ECG
[2018-02-09] MEDS: Albuterol-Ipratrop 3 mg / 0.5 (3 ml) UD IH SCH ×3 (03:05→14:01)
[2018-02-09] MEDS: Pantoprazole 40 mg EC Tab PO SCH (05:45)
[2018-02-09 07:50] LABS: BASO # 0.01 K/mm3 (0.0-2.0); BASO % 0.1 % (0.0-3.0); EOS # 0.2 (0.0-0.7); EOS % 2.2 % (1.5-5.0); GRAN # 6.34 (1.4-6.5); GRAN % 71.8 % (50.0-68.0); HEMOGLOBIN 12.8 g/dL (12.0-16.0); LYMPH # 1.3 (1.2-3.4); LYMPH % 14.3 % (22.0-35.0); MEAN CELL VOLUME 86.9 fl (80.0-105.0); MEAN CORPUSCULAR HEMOGLOBIN 28.4 pg (25.0-35.0); MEAN CORPUSCULAR HGB CONC 32.7 g/dl (31.0-37.0); MEAN PLATELET VOLUME 10.2 fl (7.0-11.0); MONO % 11.6 % (1.0-6.0); RBC 4.5 10^6/uL (3.5-6.1); WHITE BLOOD COUNT 8.8 10^3/ul (4.5-11.0)
[2018-02-09 07:51] LABS: ALB/GLOB RATIO 1.3 (1.1-1.8); ALBUMIN 3.7 g/dL (3.0-4.8); ALT/SGPT 43 U/L (7-56); AST/SGOT 23 U/L (14-36); BLOOD UREA NITROGEN 23 mg/dL (7-21); CALCIUM 9.7 mg/dL (8.4-10.5); GFR AFRICAN-AMERICAN > 60; GFR NON-AFRICAN AMERICAN > 60; HDL CHOLESTEROL 45 mg/dL (29-60)
[2018-02-09 08:00] LABS: B-TYPE NATRIURETIC PEPTIDE 1580 pg/mL (0-450); TROPONIN I 0.07 ng/mL
[2018-02-09 08:13] LABS: LDL CHOLESTEROL 68 mg/dL (0-129)
[2018-02-09] MEDS: Azithromycin 500MG/NS 250ml 500 MG/250 ML BAG IVPB SCH (09:46)
[2018-02-09] MEDS: Multivitamin With Minerals Tab PO SCH (09:48)
[2018-02-09] MEDS ORDERED: cefTRIAXone 1 gm 1 GM/100 ML BAG IVPB SCH (10:00)
--- NOTE | 2018-02-09 10:27 | CP.PCM.PN ---
Subjective - Date & Time of Evaluation Date of Evaluation: 02/09/18 Time of Evaluation: 06:35 - Subjective Subjective: Awake, alert, feels good,wanted to go home,denies shortness of breath Reason for consultation and follow up:Cardiac evaluation of shortness of breath , was just discharged yesterday, post VICKY with cardioversion for new onset atrial fibrillation, history of coronary artery disease s/p PTCA w/ drug eluting stent in RCA (04/01),hypertension, hyperlipidemia, Seen and examined by me and Dr. Alcaraz Objective - Vital Signs/Intake and Output Vital Signs (last 24 hours): Temp Pulse Resp BP Pulse Ox 98.3 F 94 H 20 123/81 100 02/09/18 06:00 02/09/18 09:48 02/09/18 06:00 02/09/18 09:58 02/09/18 06:00 Intake and Output: 02/09/18 02/09/18 06:59 18:59 Intake Total 540 Output Total 2 Balance 538 - Medications Medications: Current Medications Albuterol/Ipratropium (Duoneb 3 Mg/0.5 Mg (3 Ml) Ud) 3 ml IH [id number] [facility] Last Admin: 02/09/18 07:45 Dose: 3 ml Albuterol/Ipratropium (Duoneb 3 Mg/0.5 Mg (3 Ml) Ud) 3 ml IH Q2H PRN PRN Reason: Shortness of Breath Apixaban (Eliquis) 5 mg PO BID [facility] PRN Reason: Protocol Last Admin: 02/09/18 09:48 Dose: 5 mg Aspirin (Ecotrin) 81 mg PO DAILY [facility] Last Admin: 02/09/18 09:48 Dose: 81 mg Atorvastatin Calcium (Lipitor) 10 mg PO DIN [facility] Last Admin: 02/08/18 17:29 Dose: 10 mg Furosemide (Lasix) 40 mg IVP DAILY [facility] Last Admin: 02/09/18 09:58 Dose: 40 mg Hydrochlorothiazide (Microzide) 12.5 mg PO DAILY [facility] Last Admin: 02/09/18 09:48 Dose: 12.5 mg Ceftriaxone Sodium (Rocephin 1 Gram Ivpb) 1 gm in 100 mls @ 100 mls/hr IVPB DAILY [facility] PRN Reason: Protocol Last Admin: 02/09/18 09:46 Dose: 100 mls/hr Azithromycin (Zithromax 500mg In Ns) 500 mg in 250 mls @ 167 mls/hr IVPB DAILY [facility] PRN Reason: Protocol Last Admin: 02/09/18 09:46 Dose: 167 mls/hr Losartan Potassium (Cozaar) 50 mg PO DAILY [facility] Last Admin: 02/09/18 09:48 Dose: 50 mg Multivitamins/Minerals (Therapeutic-M Tab) 1 tab PO DAILY [facility] Last Admin: 02/09/18 09:48 Dose: 1 tab Pantoprazole Sodium (Protonix Ec Tab) 40 mg PO 0600 [facility] Last Admin: 02/09/18 05:45 Dose: 40 mg - Labs Labs: 02/09/18 07:00 02/09/18 07:00 PT 15.5 SECONDS (9.4-12.5) H 02/08/18 02:24 INR 1.35 (0.93-1.08) H 02/08/18 02:24 APTT 30.4 Seconds (25.1-36.5) 02/08/18 02:24 - Constitutional Appears: No Acute Distress - Eye Exam Eye Exam: Normal appearance - ENT Exam ENT Exam: Mucous Membranes Moist - Respiratory Exam Respiratory Exam: Decreased Breath Sounds, NORMAL BREATHING PATTERN - Cardiovascular Exam Cardiovascular Exam: +S1, +S2 Additional comments: NSR 1st degree heart block - GI/Abdominal Exam GI & Abdominal Exam: Soft, Normal Bowel Sounds - Extremities Exam Extremities Exam: Normal Capillary Refill - Neurological Exam Neurological Exam: Alert, Awake, Oriented x3 - Psychiatric Exam Psychiatric exam: Normal Affect - Skin Skin Exam: Intact, Warm Assessment and Plan - Assessment and Plan (Free Text) Assessment: An 87 year old female who was just recently discharged 02/07/18. She came in for shortness of breath. EKG showed new onset atrial fibrillation and VICKY was done with successful cardioversion to NSR. She has history of coronary artery disease s/p PTCA w/ drug eluting stent in RCA (04/01),hypertension, hyperlipidemia,Nephrolithiasis w/ stent (04/01). Yesterday She was awaken after midnight to urinate, and began feeling difficulty breathing thus came back to the ER.She has similar symptoms with the prior admission. Plan: Denies shortness of breath CT of chest -Bilateral large pleural effusion Diurese,Continue Lasix Will repeat chest X ray today, adjust Lasix as needed. Troponin yesterday 0.16 and 0.18 Troponin today 0.07, trending down Will monitor and decide if cardiac catheterization warranted On Eliquis 5 mg daily,ASA 81 mg daily,Lipitor 10 mg daily, Lasix 40 mg daily,Microzide 12.5 mg daily,Cozaar 50 mg daily Continue current treatment Continue current medications Will follow up Plan and treatment discussed with Dr. Alcaraz
--- NOTE | 2018-02-09 10:34 | CP.PCM.CON ---
History of Present Illness - History of Present Illness History of Present Illness: Awake, alert, feels good,wanted to go home,denies shortness of breath Reason for consultation; Cardiac evaluation of shortness of breath, was just discharged yesterday, post VICKY with cardioversion for new onset atrial fibrillation, history of coronary artery disease s/p PTCA w/ drug eluting stent in RCA (04/01),hypertension, hyperlipidemia, Brief history of present illness: An 87 year old female who was just recently discharged 02/08/18. She came in for shortness of breath. EKG showed new onset atrial fibrillation and VICKY was done with successful cardioversion to NSR. She has history of coronary artery disease s/p PTCA w/ drug eluting stent in RCA (),hypertension, hyperlipidemia,Nephrolithiasis w/ stent (04/01). Yesterday She was awoken after midnight to urinate, and began feeling difficulty breathing thus came back to the ER. Seen and examined by me and Dr. Alcaraz Past Patient History - Tetanus Immunizations Tetanus Immunization: Unknown - Past Social History Smoking Status: Never Smoked - CARDIAC Hx Pacemaker: No - PULMONARY Hx Respiratory Disorders: No - NEUROLOGICAL Hx Paralysis: No - HEENT Hx HEENT Problems: Yes ("WRINKLED RETINA") Hx Cataracts: Yes Hx Deafness: Yes - RENAL Hx Chronic Kidney Disease: Yes Hx Kidney Stones: Yes - ENDOCRINE/METABOLIC Hx Endocrine Disorders: No - HEMATOLOGICAL/ONCOLOGICAL Hx Blood Transfusions: No - INTEGUMENTARY Hx Dermatological Problems: Yes Hx Eczema: Yes (H/O) - MUSCULOSKELETAL/RHEUMATOLOGICAL Hx Musculoskeletal Disorders: Yes - GASTROINTESTINAL Hx Gastrointestinal Disorders: Yes Hx Gall Bladder Disease: Yes (CHOLECYSTITIS,GALLSTONES) - PSYCHIATRIC Hx Emotional Abuse: No Hx Physical Abuse: No Hx Substance Use: No - SURGICAL HISTORY Hx Musculoskeletal Surgery: Yes (R HIP, BILAT KNEES) - ANESTHESIA Hx Anesthesia Reactions: No Hx Malignant Hyperthermia: No Meds Home Medications: Home Medication List Medication Instructions Recorded Confirmed Type Albuterol HFA [Ventolin HFA 90 1 puff IH Q6H PRN #1 inhaler 02/09/18 Rx mcg/actuation (8 g)] Amoxicillin/Clavulanate [Augmentin 1 tab PO BID #14 tab 02/09/18 Rx 875 MG-125 MG] Furosemide [Lasix] 40 mg PO DAILY #7 tablet 02/09/18 Rx Allergies/Adverse Reactions: Allergies Allergy/AdvReac Type Severity Reaction Status Date / Time latex Allergy SWELLING Verified 04/01/17 10:42 - Medications Medications: Current Medications Albuterol/Ipratropium (Duoneb 3 Mg/0.5 Mg (3 Ml) Ud) 3 ml IH [id number] [facility] Last Admin: 02/09/18 07:45 Dose: 3 ml Albuterol/Ipratropium (Duoneb 3 Mg/0.5 Mg (3 Ml) Ud) 3 ml IH Q2H PRN PRN Reason: Shortness of Breath Apixaban (Eliquis) 5 mg PO BID [facility] PRN Reason: Protocol Last Admin: 02/09/18 09:48 Dose: 5 mg Aspirin (Ecotrin) 81 mg PO DAILY [facility] Last Admin: 02/09/18 09:48 Dose: 81 mg Atorvastatin Calcium (Lipitor) 10 mg PO DIN [facility] Last Admin: 02/08/18 17:29 Dose: 10 mg Furosemide (Lasix) 40 mg IVP DAILY [facility] Last Admin: 02/09/18 09:58 Dose: 40 mg Hydrochlorothiazide (Microzide) 12.5 mg PO DAILY [facility] Last Admin: 02/09/18 09:48 Dose: 12.5 mg Ceftriaxone Sodium (Rocephin 1 Gram Ivpb) 1 gm in 100 mls @ 100 mls/hr IVPB DAILY [facility] PRN Reason: Protocol Last Admin: 02/09/18 09:46 Dose: 100 mls/hr Azithromycin (Zithromax 500mg In Ns) 500 mg in 250 mls @ 167 mls/hr IVPB DAILY [facility] PRN Reason: Protocol Last Admin: 02/09/18 09:46 Dose: 167 mls/hr Losartan Potassium (Cozaar) 50 mg PO DAILY [facility] Last Admin: 02/09/18 09:48 Dose: 50 mg Multivitamins/Minerals (Therapeutic-M Tab) 1 tab PO DAILY [facility] Last Admin: 02/09/18 09:48 Dose: 1 tab Pantoprazole Sodium (Protonix Ec Tab) 40 mg PO 0600 [facility] Last Admin: 02/09/18 05:45 Dose: 40 mg Results - Vital Signs Recent Vital Signs: Last Vital Signs Temp 98.3 F 02/09/18 06:00 Pulse 94 H 02/09/18 09:48 Resp 20 02/09/18 06:00 BP 123/81 02/09/18 09:58 Pulse Ox 100 02/09/18 06:00 - Labs Result Diagrams: 02/09/18 07:00 02/09/18 07:00 Labs: Laboratory Results - last 24 hr 02/08/18 02/08/18 02/09/18 07:15 14:15 07:00 WBC 8.8 D RBC 4.50 Hgb 12.8 Hct 39.1 MCV 86.9 MCH 28.4 MCHC 32.7 RDW 13.0 Plt Count 315 MPV 10.2 Gran % 71.8 H Lymph % (Auto) 14.3 L [place] % (Auto) 11.6 H Eos % (Auto) 2.2 Baso % (Auto) 0.1 Gran # 6.34 Lymph # (Auto) 1.3 [place] # (Auto) 1.0 H Eos # (Auto) 0.2 Baso # (Auto) 0.01 Sodium Potassium Chloride Carbon Dioxide Anion Gap BUN Creatinine Est GFR ( Amer) Est GFR (Non-Af Amer) Random Glucose Calcium Phosphorus Magnesium Total Bilirubin AST ALT Alkaline Phosphatase Lactate Dehydrogenase Total Creatine Kinase Troponin I 0.18 H* NT-Pro-B Natriuret Pep Total Protein Albumin Globulin Albumin/Globulin Ratio Triglycerides Cholesterol LDL Cholesterol Direct HDL Cholesterol Procalcitonin 0.12 L TSH 3rd Generation 02/09/18 02/09/18 07:00 07:00 WBC RBC Hgb Hct MCV MCH MCHC RDW Plt Count MPV Gran % Lymph % (Auto) [place] % (Auto) Eos % (Auto) Baso % (Auto) Gran # Lymph # (Auto) [place] # (Auto) Eos # (Auto) Baso # (Auto) Sodium 139 Potassium 3.9 Chloride 101 Carbon Dioxide 31 Anion Gap 12 BUN 23 H Creatinine 0.7 Est GFR ( Amer) > 60 Est GFR (Non-Af Amer) > 60 Random Glucose 138 H Calcium 9.7 Phosphorus 3.3 Magnesium 1.8 Total Bilirubin 1.0 AST 23 ALT 43 Alkaline Phosphatase 68 Lactate Dehydrogenase 328 L Total Creatine Kinase 30 L Troponin I 0.07 D NT-Pro-B Natriuret Pep 1580 H Total Protein 6.5 Albumin 3.7 Globulin 2.8 Albumin/Globulin Ratio 1.3 Triglycerides 72 Cholesterol 136 LDL Cholesterol Direct 68 HDL Cholesterol 45 Procalcitonin TSH 3rd Generation 0.86 Assessment & Plan - Assessment and Plan (Free Text) Assessment: A 87 year old female who came in to the ER due to shortness of breath. History of coronary artery disease s/p PTCA w/ drug eluting stent in RCA (04/01), hypertension, hyperlipidemia, Nephrolithiasis w/ stent (04/01), and New onset Afib diagnosed 01/30/18 s/p VICKY Cardioversion on 02/07/18 by Bree Luque Presented to [facility] ED on w/ CC of new onset SOB/ Dyspnea.
[2018-02-09 12:27] VITALS: BP 133/54; RESP 19; TEMP 99.3
[2018-02-09 13:33] VITALS: O2SAT 95
--- NOTE | 2018-02-09 13:56 | RAD ---
Date of service: 02/09/2018 HISTORY: Re-evaluate pleural effusion and congestion. COMPARISON: February 08, 2018. FINDINGS: LUNGS: Interval improvement in pulmonary vascular congestion. PLEURA: Stable pleural effusions. CARDIOVASCULAR: Cardiomegaly. OSSEOUS STRUCTURES: No significant abnormalities. VISUALIZED UPPER ABDOMEN: Normal. OTHER FINDINGS: None. IMPRESSION: Improving pulmonary vascular congestion.
[2018-02-09 14:48] VITALS: PULSE 87
--- NOTE | 2018-02-09 15:25 | CP.PCM.DIS ---
<John Marcos - Last Filed: 02/09/18 16:26> Provider - Provider Date of Admission: 02/08/18 03:56 Attending physician: Naresh Tian MD Primary care physician: Isaiah Mallory DO Time Spent in preparation of Discharge (in minutes): 45 Diagnosis - Discharge Diagnosis (1) CHF (congestive heart failure) Status: Chronic Priority: Medium (2) Shortness of breath Status: Resolved Priority: Medium (3) Pleural effusion Status: Acute Priority: Medium (4) Atrial fibrillation Status: Chronic Priority: Medium Hospital Course - Lab Results Lab Results: Micro Results 02/08/18 07:15 Blood Blood Culture - Preliminary NO GROWTH AFTER 24 HOURS Most Recent Lab Values WBC 8.8 10^3/ul (4.5-11.0) D 02/09/18 07:00 RBC 4.50 10^6/uL (3.5-6.1) 02/09/18 07:00 Hgb 12.8 g/dL (12.0-16.0) 02/09/18 07:00 Hct 39.1 % (36.0-48.0) 02/09/18 07:00 MCV 86.9 fl (80.0-105.0) 02/09/18 07:00 MCH 28.4 pg (25.0-35.0) 02/09/18 07:00 MCHC 32.7 g/dl (31.0-37.0) 02/09/18 07:00 RDW 13.0 % (11.5-14.5) 02/09/18 07:00 Plt Count 315 10^3/uL (120.0-450.0) 02/09/18 07:00 MPV 10.2 fl (7.0-11.0) 02/09/18 07:00 Gran % 71.8 % (50.0-68.0) H 02/09/18 07:00 Lymph % (Auto) 14.3 % (22.0-35.0) L 02/09/18 07:00 [place] % (Auto) 11.6 % (1.0-6.0) H 02/09/18 07:00 Eos % (Auto) 2.2 % (1.5-5.0) 02/09/18 07:00 Baso % (Auto) 0.1 % (0.0-3.0) 02/09/18 07:00 Gran # 6.34 (1.4-6.5) 02/09/18 07:00 Lymph # (Auto) 1.3 (1.2-3.4) 02/09/18 07:00 [place] # (Auto) 1.0 (0.1-0.6) H 02/09/18 07:00 Eos # (Auto) 0.2 (0.0-0.7) 02/09/18 07:00 Baso # (Auto) 0.01 K/mm3 (0.0-2.0) 02/09/18 07:00 PT 15.5 SECONDS (9.4-12.5) H 02/08/18 02:24 INR 1.35 (0.93-1.08) H 02/08/18 02:24 APTT 30.4 Seconds (25.1-36.5) 02/08/18 02:24 pCO2 40 mm/Hg (35-45) 02/08/18 02:28 pO2 35 mm/Hg (30-55) 02/08/18 07:15 HCO3 24.2 mmol/L (21-28) 02/08/18 02:28 ABG pH 7.39 (7.35-7.45) 02/08/18 02:28 ABG Total CO2 25.4 mmol.L (22-28) 02/08/18 02:28 ABG O2 Saturation 98.7 % (95-98) H 02/08/18 02:28 ABG O2 Content 16.8 ML/dl (15-23) 02/08/18 02:28 ABG Base Excess -0.7 mmol/L (-2.0-3.0) 02/08/18 02:28 ABG Hemoglobin 12.5 g/dL (11.7-17.4) 02/08/18 02:28 ABG Carboxyhemoglobin 2.3 % (0.5-1.5) H 02/08/18 02:28 POC ABG HHb (Measured) 1.3 % (0-5) 02/08/18 02:28 ABG Methemoglobin 1.2 % (0.0-3.0) 02/08/18 02:28 ABG O2 Capacity 17.0 mL/dl (16-24) 02/08/18 02:28 VBG pH 7.40 (7.32-7.43) 02/08/18 07:15 VBG pCO2 50.0 (40-60) 02/08/18 07:15 VBG HCO3 31.0 mmol/l (21-28) H 02/08/18 07:15 VBG Total CO2 32.5 mmol.L (22-28) H 02/08/18 07:15 VBG O2 Sat (Calc) 72.3 % (40-65) H 02/08/18 07:15 VBG Base Excess 5.0 mmol/L (0.0-2.0) H 02/08/18 07:15 VBG Potassium 3.1 mmol/L (3.6-5.2) L 02/08/18 07:15 Hgb O2 Saturation 95.2 % (95.0-98.0) 02/08/18 02:28 Sodium 140.0 mmol/L (132-148) 02/08/18 07:15 Chloride 102.0 mmol/L (98-107) 02/08/18 07:15 Glucose 150 mg/dl (65-105) H 02/08/18 07:15 Lactate 1.4 mmol/L (0.7-2.1) 02/08/18 07:15 FiO2 21.0 % 02/08/18 07:15 Sodium 139 mmol/L (132-148) 02/09/18 07:00 Potassium 3.9 mmol/L (3.6-5.0) 02/09/18 07:00 Chloride 101 mmol/L (98-107) 02/09/18 07:00 Carbon Dioxide 31 mmol/L (21-33) 02/09/18 07:00 Anion Gap 12 (10-20) 02/09/18 07:00 BUN 23 mg/dL (7-21) H 02/09/18 07:00 Creatinine 0.7 mg/dl (0.7-1.2) 02/09/18 07:00 Est GFR ( Amer) > 60 02/09/18 07:00 Est GFR (Non-Af Amer) > 60 02/09/18 07:00 Random Glucose 138 mg/dL (70-110) H 02/09/18 07:00 Calcium 9.7 mg/dL (8.4-10.5) 02/09/18 07:00 Phosphorus 3.3 mg/dL (2.5-4.5) 02/09/18 07:00 Magnesium 1.8 mg/dL (1.7-2.2) 02/09/18 07:00 Total Bilirubin 1.0 mg/dL (0.2-1.3) 02/09/18 07:00 AST 23 U/L (14-36) 02/09/18 07:00 ALT 43 U/L (7-56) 02/09/18 07:00 Alkaline Phosphatase 68 U/L (38-126) 02/09/18 07:00 Lactate Dehydrogenase 328 U/L (333-699) L 02/09/18 07:00 Total Creatine Kinase 30 U/L (35-230) L 02/09/18 07:00 Troponin I 0.07 ng/mL D 02/09/18 07:00 NT-Pro-B Natriuret Pep 1580 pg/mL (0-450) H 02/09/18 07:00 Total Protein 6.5 g/dL (5.8-8.3) 02/09/18 07:00 Albumin 3.7 g/dL (3.0-4.8) 02/09/18 07:00 Globulin 2.8 gm/dL 02/09/18 07:00 Albumin/Globulin Ratio 1.3 (1.1-1.8) 02/09/18 07:00 Triglycerides 72 mg/dL (35-160) 02/09/18 07:00 Cholesterol 136 mg/dL (130-200) 02/09/18 07:00 LDL Cholesterol Direct 68 mg/dL (0-129) 02/09/18 07:00 HDL Cholesterol 45 mg/dL (29-60) 02/09/18 07:00 Procalcitonin 0.12 NG/ML (0.19-0.49) L 02/08/18 07:15 TSH 3rd Generation 0.86 mIU/mL (0.46-4.68) 02/09/18 07:00 Venous Blood Potassium 3.1 mmol/L (3.6-5.2) L 02/08/18 07:15 Urine Color Dark yellow (YELLOW) 02/08/18 02:50 Urine Appearance Cloudy (CLEAR) 02/08/18 02:50 Urine pH 6.0 (4.7-8.0) 02/08/18 02:50 Ur Specific [place] 1.015 (1.005-1.035) 02/08/18 02:50 Urine Protein 100 mg/dL (<30 mg/dL) H 02/08/18 02:50 Urine Glucose (UA) Negative mg/dL (NEGATIVE) 02/08/18 02:50 Urine Ketones Negative mg/dL (NEGATIVE) 02/08/18 02:50 Urine Blood Large (NEGATIVE) H 02/08/18 02:50 Urine Nitrate Positive (NEGATIVE) H 02/08/18 02:50 Urine Bilirubin Negative (NEGATIVE) 02/08/18 02:50 Urine Urobilinogen 0.2 E.U./dL (<1 E.U./dL) 02/08/18 02:50 Ur Leukocyte Esterase Large [place]/uL (NEGATIVE) H 02/08/18 02:50 Urine RBC Tntc /hpf (0-2) 02/08/18 02:50 Urine WBC 15 - 20 /hpf (0-6) 02/08/18 02:50 Ur Epithelial Cells 0 - 2 /hpf (0-5) 02/08/18 02:50 Urine Bacteria Many (NEG) 02/08/18 02:50 - Hospital Course Hospital Course: Ms. Ron is a 77 yo female with PMHx of HTN, HLD, CAD s/p PCI with stents, new onset Atrial fibrillation s/p VICKY cardioversion presented with sudden onset of SOB. Patient was treated with duonebs, lasix, hydrochlorothiazide, losartan, eliquis, aspirin, lipitor, protonix azithromax, and ceftriaxone. During the course of her hospital stay, patient got an EKG that showed NSR at 74 bpm. Chest xray showed mild cardiomegaly and moderate vascular congestion. Chest CT showed large bilateral pleural effusions and compressive atelectasis at the lung bases, with cardiomegaly compatible with CHF. Pulmonology (Dr. Astorga) was consulted and recommended IV diuresis, monitor o2 stats, dunoebs PRN, and increase ambulation with PT/OT. Patient instructed to start new medications as prescribed: Lasix 40mg QD, Augmentin 875mg BID for 7 days, and Ventolin HFA as needed. Patient was instructed to resume all home medications. Patient was educated on the correct way to take medications and was instructed to follow up with her primary care doctor in 3-5 days. She was also instructed to follow up with her admissions consultant in 3-5 days. Patient was instructed to resume activity as tolerated and continue to eat a heart healthy diet at home. Patient further informed to return to the ED if symptoms return.Patient is now medically optimized for discharge. Discharge Exam - Head Exam Head Exam: NORMAL INSPECTION - Eye Exam Eye Exam: Normal appearance - ENT Exam ENT Exam: Mucous Membranes Moist - Respiratory Exam Respiratory Exam: Clear to PA & Lateral. absent: Rales, Rhonchi, Wheezes - Cardiovascular Exam Cardiovascular Exam: REGULAR RHYTHM, +S1, +S2. absent: Gallop, Rubs, Systolic Murmur - GI/Abdominal Exam GI & Abdominal Exam: Normal Bowel Sounds, Soft. absent: Tenderness - Extremities Exam Additional comments: no calf tenderness or pedal edema - Neurological Exam Neurological exam: Alert, Oriented x3 - Psychiatric Exam Psychiatric exam: Normal Affect, Normal Mood - Skin Skin Exam: Dry, Normal Color, Warm Discharge Plan - Discharge Medications Prescriptions: Albuterol HFA [Ventolin HFA 90 mcg/actuation (8 g)] 1 puff IH Q6H PRN #1 inhaler PRN Reason: Shortness Of Breath Amoxicillin/Clavulanate [Augmentin 875 MG-125 MG] 1 tab PO BID #14 tab Furosemide [Lasix] 40 mg PO DAILY #7 tablet - Follow Up Plan Condition: FAIR Disposition: HOME/ ROUTINE Instructions: Heart Failure, Adult, Pleural Effusion (DC) Additional Instructions: - Follow up with primary care doctor in 3-5 days - Follow up with admissions consultant in 3-5 days - Complete all antibiotics - Take new medications as prescribed and resume home medications as indicated - Proceed to ED if symptoms return Referrals: Bree Dennis MD [Staff Provider] - Isaiah Mallory DO [Primary Care Provider] - <Naresh Tian - Last Filed: 02/10/18 10:19> Provider - Provider Date of Admission: 02/08/18 03:56 Attending physician: Naresh Tian MD Primary care physician: Isaiah Morandi, DO Hospital Course - Lab Results Lab Results: Micro Results 02/08/18 07:15 Blood Blood Culture - Preliminary NO GROWTH AFTER 48 HOURS Most Recent Lab Values WBC 8.8 10^3/ul (4.5-11.0) D 02/09/18 07:00 RBC 4.50 10^6/uL (3.5-6.1) 02/09/18 07:00 Hgb 12.8 g/dL (12.0-16.0) 02/09/18 07:00 Hct 39.1 % (36.0-48.0) 02/09/18 07:00 MCV 86.9 fl (80.0-105.0) 02/09/18 07:00 MCH 28.4 pg (25.0-35.0) 02/09/18 07:00 MCHC 32.7 g/dl (31.0-37.0) 02/09/18 07:00 RDW 13.0 % (11.5-14.5) 02/09/18 07:00 Plt Count 315 10^3/uL (120.0-450.0) 02/09/18 07:00 MPV 10.2 fl (7.0-11.0) 02/09/18 07:00 Gran % 71.8 % (50.0-68.0) H 02/09/18 07:00 Lymph % (Auto) 14.3 % (22.0-35.0) L 02/09/18 07:00 [place] % (Auto) 11.6 % (1.0-6.0) H 02/09/18 07:00 Eos % (Auto) 2.2 % (1.5-5.0) 02/09/18 07:00 Baso % (Auto) 0.1 % (0.0-3.0) 02/09/18 07:00 Gran # 6.34 (1.4-6.5) 02/09/18 07:00 Lymph # (Auto) 1.3 (1.2-3.4) 02/09/18 07:00 [place] # (Auto) 1.0 (0.1-0.6) H 02/09/18 07:00 Eos # (Auto) 0.2 (0.0-0.7) 02/09/18 07:00 Baso # (Auto) 0.01 K/mm3 (0.0-2.0) 02/09/18 07:00 PT 15.5 SECONDS (9.4-12.5) H 02/08/18 02:24 INR 1.35 (0.93-1.08) H 02/08/18 02:24 APTT 30.4 Seconds (25.1-36.5) 02/08/18 02:24 pCO2 40 mm/Hg (35-45) 02/08/18 02:28 pO2 35 mm/Hg (30-55) 02/08/18 07:15 HCO3 24.2 mmol/L (21-28) 02/08/18 02:28 ABG pH 7.39 (7.35-7.45) 02/08/18 02:28 ABG Total CO2 25.4 mmol.L (22-28) 02/08/18 02:28 ABG O2 Saturation 98.7 % (95-98) H 02/08/18 02:28 ABG O2 Content 16.8 ML/dl (15-23) 02/08/18 02:28 ABG Base Excess -0.7 mmol/L (-2.0-3.0) 02/08/18 02:28 ABG Hemoglobin 12.5 g/dL (11.7-17.4) 02/08/18 02:28 ABG Carboxyhemoglobin 2.3 % (0.5-1.5) H 02/08/18 02:28 POC ABG HHb (Measured) 1.3 % (0-5) 02/08/18 02:28 ABG Methemoglobin 1.2 % (0.0-3.0) 02/08/18 02:28 ABG O2 Capacity 17.0 mL/dl (16-24) 02/08/18 02:28 VBG pH 7.40 (7.32-7.43) 02/08/18 07:15 VBG pCO2 50.0 (40-60) 02/08/18 07:15 VBG HCO3 31.0 mmol/l (21-28) H 02/08/18 07:15 VBG Total CO2 32.5 mmol.L (22-28) H 02/08/18 07:15 VBG O2 Sat (Calc) 72.3 % (40-65) H 02/08/18 07:15 VBG Base Excess 5.0 mmol/L (0.0-2.0) H 02/08/18 07:15 VBG Potassium 3.1 mmol/L (3.6-5.2) L 02/08/18 07:15 Hgb O2 Saturation 95.2 % (95.0-98.0) 02/08/18 02:28 Sodium 140.0 mmol/L (132-148) 02/08/18 07:15 Chloride 102.0 mmol/L (98-107) 02/08/18 07:15 Glucose 150 mg/dl (65-105) H 02/08/18 07:15 Lactate 1.4 mmol/L (0.7-2.1) 02/08/18 07:15 FiO2 21.0 % 02/08/18 07:15 Sodium 139 mmol/L (132-148) 02/09/18 07:00 Potassium 3.9 mmol/L (3.6-5.0) 02/09/18 07:00 Chloride 101 mmol/L (98-107) 02/09/18 07:00 Carbon Dioxide 31 mmol/L (21-33) 02/09/18 07:00 Anion Gap 12 (10-20) 02/09/18 07:00 BUN 23 mg/dL (7-21) H 02/09/18 07:00 Creatinine 0.7 mg/dl (0.7-1.2) 02/09/18 07:00 Est GFR ( Amer) > 60 02/09/18 07:00 Est GFR (Non-Af Amer) > 60 02/09/18 07:00 Random Glucose 138 mg/dL (70-110) H 02/09/18 07:00 Calcium 9.7 mg/dL (8.4-10.5) 02/09/18 07:00 Phosphorus 3.3 mg/dL (2.5-4.5) 02/09/18 07:00 Magnesium 1.8 mg/dL (1.7-2.2) 02/09/18 07:00 Total Bilirubin 1.0 mg/dL (0.2-1.3) 02/09/18 07:00 AST 23 U/L (14-36) 02/09/18 07:00 ALT 43 U/L (7-56) 02/09/18 07:00 Alkaline Phosphatase 68 U/L (38-126) 02/09/18 07:00 Lactate Dehydrogenase 328 U/L (333-699) L 02/09/18 07:00 Total Creatine Kinase 30 U/L (35-230) L 02/09/18 07:00 Troponin I 0.07 ng/mL D 02/09/18 07:00 NT-Pro-B Natriuret Pep 1580 pg/mL (0-450) H 02/09/18 07:00 Total Protein 6.5 g/dL (5.8-8.3) 02/09/18 07:00 Albumin 3.7 g/dL (3.0-4.8) 02/09/18 07:00 Globulin 2.8 gm/dL 02/09/18 07:00 Albumin/Globulin Ratio 1.3 (1.1-1.8) 02/09/18 07:00 Triglycerides 72 mg/dL (35-160) 02/09/18 07:00 Cholesterol 136 mg/dL (130-200) 02/09/18 07:00 LDL Cholesterol Direct 68 mg/dL (0-129) 02/09/18 07:00 HDL Cholesterol 45 mg/dL (29-60) 02/09/18 07:00 Procalcitonin 0.12 NG/ML (0.19-0.49) L 02/08/18 07:15 TSH 3rd Generation 0.86 mIU/mL (0.46-4.68) 02/09/18 07:00 Venous Blood Potassium 3.1 mmol/L (3.6-5.2) L 02/08/18 07:15 Urine Color Dark yellow (YELLOW) 02/08/18 02:50 Urine Appearance Cloudy (CLEAR) 02/08/18 02:50 Urine pH 6.0 (4.7-8.0) 02/08/18 02:50 Ur Specific [place] 1.015 (1.005-1.035) 02/08/18 02:50 Urine Protein 100 mg/dL (<30 mg/dL) H 02/08/18 02:50 Urine Glucose (UA) Negative mg/dL (NEGATIVE) 02/08/18 02:50 Urine Ketones Negative mg/dL (NEGATIVE) 02/08/18 02:50 Urine Blood Large (NEGATIVE) H 02/08/18 02:50 Urine Nitrate Positive (NEGATIVE) H 02/08/18 02:50 Urine Bilirubin Negative (NEGATIVE) 02/08/18 02:50 Urine Urobilinogen 0.2 E.U./dL (<1 E.U./dL) 02/08/18 02:50 Ur Leukocyte Esterase Large [place]/uL (NEGATIVE) H 02/08/18 02:50 Urine RBC Tntc /hpf (0-2) 02/08/18 02:50 Urine WBC 15 - 20 /hpf (0-6) 02/08/18 02:50 Ur Epithelial Cells 0 - 2 /hpf (0-5) 02/08/18 02:50 Urine Bacteria Many (NEG) 02/08/18 02:50 Attending/Attestation - Attestation I have personally seen and examined this patient.: Yes I have fully participated in the care of the patient.: Yes I have reviewed all pertinent clinical information, including history, physical exam and plan: Yes Notes (Text): 02/10/18 10:13 Attending note; Patient seen and examined with resident. Patient is completely alert and awake. Was on oxygen nasal cannula at night. Currently off oxygen. Tolerating diet well. Denies any complaints. Patient is a 77 yo female with PMHx of HTN, hyperlipidemia , CAD s/p PCI with stents, new onset Atrial fibrillation s/p VICKY cardioversion yesterday presented with sudden onset of SOB last night. Chest CT showed pleural effusion and minimal consolidation. Patient was treated with IV Rocephin and Zithromax, DuoNeb and oxygen. Currently patient is on room air. Saturating well. Pulmonary evaluation appreciated. Patient is medically stable. Patient is afebrile and nontoxic. Leukocytosis resolved. Status post cardioversion; continue eliquis . Cardiology evaluation appreciated. Mildly elevated troponin trending down. Cardiology cleared the patient for discharge. Patient will be discharged home with Augmentin. Patient will follow-up with PMD Dr. Mallory. Patient will follow-up with cardiology Dr. Dennis in 3-5 days. Advised pulmonary follow-up for outpatient sleep study. The diagnosis and follow-up plan discussed with patient in detail.
--- NOTE | 2018-02-09 20:32 | CARD ---
APPROVED REPORT Date of service: 02/09/2018 EKG Measurement Heart [id number] <Conclusion> Normal sinus rhythm T wave abnormality, consider anterior ischemia Prolonged QT Abnormal ECG
--- NOTE | 2018-02-11 08:23 | CON ---
DATE: 02/08/2018 CARDIOLOGY CONSULTATION REASON FOR CONSULTATION: Acute decompensated congestive heart failure, shortness of breath, rule out UTI, status post VICKY cardioversion yesterday. BRIEF CLINICAL HISTORY: This is an 87-year-old female who was yesterday admitted for VICKY cardioversion as an outpatient procedure. After the VICKY cardioversion, patient went home since then she remains stable, although she did a lot of hard work, fixed up the mattress, large-sized mattress, bed sheet change, later on went to bed at 8 o'clock, and then she woke up with the shortness of breath. Denies any chest pain. In the ER, found to be elevated WBC count, elevated nitrites in the urine, and elevated BNP. Admitted with decompensated congestive heart failure, possible UTI. Patient denies any chest pain, shortness of breath, or any palpitation. PAST MEDICAL HISTORY: Significant for VICKY cardioversion yesterday in afternoon and went home. 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 Followed up patient with stress test, the stress test was normal, but patient went into AFib, so patient was started on Eliquis and brought here electively for VICKY cardioversion yesterday. RECENT CARDIAC WORKUP: Patient's EKG on 01/30/2018, showed AFib. Patient's Lexiscan dated 01/25/2018, that showed ejection fraction 60%, fixed defect. No reversible ischemia. Patient's bilateral carotid duplex on 01/02/2018, that showed 29% stenosis. Patient had yesterday VICKY and cardioversion done. VICKY revealed, dated 02/07/2018, mildly dilated RA, mildly dilated RV and LA (left atrium), preserved LV function, ejection fraction 55%, [id number] aortic stenosis, valve area of 1.2 cm, 1.3 cm by planimetry and continuity equation. Moderate mitral regurgitation, mild TR. RV systolic pressure 19. Moderate plaque in descending aorta. Velocity of left atrial appendage less than 0.4 m/s, 200 joules of synchronized cardioversion done. Patient converted to normal sinus. At that point, recommendation was to continue Eliquis for 2 to 4 weeks. CURRENT MEDICATIONS: Patient is taking at home: Amlodipine 5 mg daily, Norvasc 10 mg daily, Eliquis 5 mg b.i.d., and aspirin 81 mg daily. REVIEW OF SYSTEMS: As per HPI. PHYSICAL EXAMINATION: VITAL SIGNS: Temperature afebrile, heart rate 77, blood pressure 129/63. HEENT: PERRLA. Extraocular movements are intact. NECK: Supple. No carotid bruits or thyromegaly. CHEST: Clear to auscultation. HEART: S1 and S2, regular. ABDOMEN: Soft. EXTREMITIES: Clubbing and cyanosis negative. LABORATORY DATA: Blood workup as follows; WBC 12, hemoglobin 12.9, hematocrit 39.3, and platelet count 321. Chemistry shows sodium 141, potassium 3.4, chloride 100, carbon dioxide 31, anion gap of 14. BUN 20, creatinine 0.7. Troponin is 0.01. IMPRESSION: An 87-year-old female with a past medical history significant for coronary artery disease, nonischemic, status post anomalous percutaneous transluminal coronary angioplasty, was stented in 03/2017. Recent stress test is negative. Yesterday, patient was admitted for transesophageal echocardiography cardioversion. Patient underwent transesophageal echocardiography cardioversion, later on admitted at night with shortness of breath, found to have elevated WBC, urine is cloudy, possible urinary tract infection, although patient admitted now with congestive heart failure. Chest x-ray does not look like any florid pulmonary edema, although mild encephalization noted and BNP of 990, which was mildly elevated. RECOMMENDATION: Continue IV antibiotics. Continue gentle diuretics. We will follow up serial CPK, troponin. If serial CPK and troponin trending up, consider cardiac catheterization on Sunday because patient is on Eliquis, but if the troponin trends down, we will treat medically because the recent stress test is negative and also patient had anomalous origin of RCA which was stented. If any abnormality very significant elevation in troponin. Just troponin is most likely secondary to hemodynamic instability, sepsis. Patient's admitting WBC was 14,000 to 15,000 and now is 12,000, on IV antibiotics. For now, continue IV antibiotics, continue Eliquis. Follow up serial CPK, troponin trend. If this troponin trends down, no further interventions planned, but if this troponin turned up, consider cardiac catheterization on Sunday as patient is on Eliquis. We will hold for 24 to 48 hours of Eliquis prior to cardiac catheterization. We will do BNP as well as lipid profile, CBC tomorrow. Thank you, Dr. Tian, for providing us the opportunity in taking care of the patient, Caroele Ron. Bree Dennis MD
--- NOTE | 2018-02-26 09:21 | PQF ---
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 Please document the type and acuity (in cludes probable or suspected) Such as: Type: -- Systolic -- Diastolic -- Combined -- Other, please specify Acuity: -- Acute -- Chronic -- Acute on chronic -- Other, please specify Also please document the underlying cause of the CHF (includes probable or suspected) The patient's Clinical Indicators include: With your documentation of acute decompensated CHF, please specify the type. Query created by: Ceci Lynch on 02/12/2018 11:48 AM Electronically signed by: Bree Dennis 02/26/2018 9:17 AM
== END 2018-02-09 16:14 | disposition home or self-care (01) | DRG 291 ==
LOC: ED 02:07 → ERH 03:56 → 2RSO 05:28
PROVIDERS: ADMIT Internal Medicine; ATTEND Internal Medicine
DX: I13.0 Hypertensive heart and chronic kidney disease with heart failure and stage 1 through stage 4 chronic kidney disease, or unspecified chronic kidney disease (principal); I50.33 Acute on chronic diastolic (congestive) heart failure; J98.11 Atelectasis; N39.0 Urinary tract infection, site not specified; I48.91 Unspecified atrial fibrillation; I08.1 Rheumatic disorders of both mitral and tricuspid valves; I25.10 Atherosclerotic heart disease of native coronary artery without angina pectoris; E78.5 Hyperlipidemia, unspecified; Z79.01 Long term (current) use of anticoagulants; Z79.82 Long term (current) use of aspirin; Z96.641 Presence of right artificial hip joint; Z95.5 Presence of coronary angioplasty implant and graft; Z91.040 Latex allergy status

== ENCOUNTER 2018-03-14 08:28 | Emergency (ER) | payer MEDICARE ==
[2018-03-14 09:01] VITALS: BMI 32.8
--- NOTE | 2018-03-14 09:25 | ED PDOC ---
Arrival/HPI - General Time Seen by Provider: 03/14/18 08:41 Historian: Patient - History of Present Illness Narrative History of Present Illness (Text): 03/14/18 08:50 87 year old female, whose past medical history includes hypertension, hyperlipidemia, acute coronary syndrome, PTCA of anomalous right coronary artery on 04/02/17 and gallstones, presents to the emergency department for evaluation status post falling and hitting the back of her head when getting in to the bathtub this morning around 07:00. Patient notes she hit the back of her head on the soap dish. Patient reports recent replacement of hip and both knees. Patient notes currently taking blood thinner and reports not taking Lasix currently. Patient states she was planning to go to her PMD today for a bump she noticed on her left leg. Patient denies any fevers, chills, chest pain, shortness of breath, abdominal pain, nausea, vomiting, diarrhea, back pain, neck pain, urinary symptoms, headache, dizziness, or any other complaint. PMD: Isaiah Lynn Time/Duration: 1-3 hours (patient reports falling around 07:00 this morning) Symptom Onset: Sudden Symptom Course: Unchanged Activities at Onset: Light Context: Home Past Medical History - Provider Review Nursing Documentation Reviewed: Yes - Tetanus Immunization Tetanus Immunization: Unknown - Cardiac Hx Pacemaker: No - Pulmonary Hx Respiratory Disorders: No - Neurological Hx Paralysis: No - HEENT Hx HEENT Disorder: Yes ("WRINKLED RETINA") Hx Cataracts: Yes Hx Deafness: Yes - Renal Hx Renal Disorder: Yes Hx Kidney Stones: Yes - Endocrine/Metabolic Hx Endocrine Disorders: No - Hematological/Oncological Hx Blood Transfusions: No - Integumentary Hx Dermatological Disorder: Yes Hx Eczema: Yes (H/O) - Musculoskeletal/Rheumatological Hx Musculoskeletal Disorders: Yes - Gastrointestinal Hx Gastrointestinal Disorders: Yes Hx Gall Bladder Disease: Yes (CHOLECYSTITIS,GALLSTONES) - Psychiatric Hx Emotional Abuse: No Hx Physical Abuse: No Hx Substance Use: No - Surgical History Hx Musculoskeletal Surgery: Yes (R HIP, BILAT KNEES) - Anesthesia Hx Anesthesia Reactions: No Hx Malignant Hyperthermia: No - Suicidal Assessment Feels Threatened In Home Enviroment: No Family/Social History - Physician Review Nursing Documentation Reviewed: Yes Family/Social History: No Known Family HX Smoking Status: Never Smoked Hx Alcohol Use: Yes (SOCIALLY/OCCASIONALLY) Hx Substance Use: No Allergies/Home Meds Allergies/Adverse Reactions: Allergies latex Allergy (Verified 04/01/17 10:42) SWELLING Home Medications: Home Meds Medication Instructions Recorded Confirmed Losartan/Hydrochlorothiazide 12.5 mg PO DAILY 03/14/17 02/09/18 [Losartan-Hctz 50-12.5 mg Tab] amLODIPine [Norvasc] 5 mg PO DAILY 03/14/17 02/08/18 Aspirin [Adult Low Dose Aspirin EC] 81 mg PO DAILY 01/28/18 02/08/18 Metoprolol Tartrate [Lopressor] 50 mg PO BID 01/28/18 02/09/18 Simvastatin [Zocor] 20 mg PO DAILY 01/28/18 02/08/18 Apixaban [Eliquis] 5 mg PO BID 02/01/18 02/09/18 Multivit-Min/FA/Lycopen/Lutein 1 tab PO DAILY 02/01/18 02/08/18 [Centrum Silver Tablet] Review of Systems - Physician Review All systems were reviewed & negative as marked: Yes - Review of Systems Constitutional: Normal. absent: Fevers Eyes: Normal ENT: Normal Respiratory: Normal. absent: SOB Cardiovascular: Normal. absent: Chest Pain Gastrointestinal: Normal. absent: Diarrhea, Nausea, Vomiting Genitourinary Female: Normal Musculoskeletal: Normal. absent: Back Pain, Neck Pain Skin: Normal Neurological: Normal. absent: Headache, Dizziness Endocrine: Normal Hemo/Lymphatic: Normal Psychiatric: Normal Physical Exam Vital Signs Reviewed: Yes Vital Signs Temp Pulse Resp BP Pulse Ox 03/14/18 10:48 98.6 F 86 16 122/86 97 03/14/18 09:31 98.6 F 80 16 122/80 97 Temperature: Afebrile Blood Pressure: Normal Pulse: Regular Respiratory Rate: Normal Appearance: Positive for: Well-Appearing, Non-Toxic, Comfortable Pain Distress: None Mental Status: Positive for: Alert and Oriented X 3 - Systems Exam Head: Present: Atraumatic (no trauma), Normocephalic Pupils: Present: PERRL Extroacular Muscles: Present: EOMI Conjunctiva: Present: Normal Mouth: Present: Moist Mucous Membranes Neck: Present: Normal Range of Motion. No: MIDLINE TENDERNESS Respiratory/Chest: Present: Clear to Auscultation, Good Air Exchange. No: Respiratory Distress, Accessory Muscle Use Cardiovascular: Present: Regular Rate and Rhythm, Normal S1, S2. No: Murmurs Abdomen: No: Tenderness, Distention, Peritoneal Signs Back: Present: Normal Inspection. No: Midline Tenderness Upper Extremity: Present: Normal Inspection. No: Cyanosis, Edema Lower Extremity: Present: CALF TENDERNESS (left calf tenderness ), Other (no bleeding. some varicose veins. ). No: Normal Inspection, Edema, Swelling Neurological: Present: GCS=15, CN II-XII Intact, Speech Normal Skin: Present: Warm, Dry, Normal Color. No: Rashes Psychiatric: Present: Alert, Oriented x 3, Normal Insight, Normal Concentration Medical Decision Making ED Course and Treatment: 03/14/18 08:50 Impression: 87 year old female presents to the emergency department for evaluation s/p falling in her bathtub and hitting the back of her head. Differential Diagnosis included but are not limited to: Mechanical fall, r/o bleed/fracture and secondary complaint of left leg pain r/o DVT. Plan: -- CT of head w/o contrast -- Tylenol 325 mg -- US of Duplex lower extremity vein bilateral -- Reassess and disposition Prior Visits: Notes and results from previous visits were reviewed. Progress Notes: CT of head reviewed by radiologist, shows: Dictator : Dr. Sanchez, Rodriguez GOEL Report Date : 03/14/2018 10:21:57 IMPRESSION: No acute findings. US of Duplex lower extremity reviewed: Impression: Negative as per report. 03/14/18 10:[address] negative and US negative. She is walking at baseline. No neurodeficits on reevaluation. She denies any pain or dizziness. She is with her daughter who will take her home. She was advised to return to the ED if symptoms worsen or any other concern. - RAD Interpretation Radiology Orders: 03/14/18 09:13 HEAD W/O CONTRAST [CT] Stat 03/14/18 09:14 DUPLEX LOWER EXTRM VEIN BILAT [US] Stat Certified Personal Chef: Radiologist - Medication Orders Current Medication Orders: Discontinued Medications Acetaminophen (Tylenol 325mg Tab) 650 mg PO STAT STA Stop: 03/14/18 09:15 Last Admin: 03/14/18 10:04 Dose: 650 mg - Scribe Statement The provider has reviewed the documentation as recorded by the Scribe Dana Pisano All medical record entries made by the Scribe were at my direction and personally dictated by me. I have reviewed the chart and agree that the record accurately reflects my personal performance of the history, physical exam, medical decision making, and the department course for this patient. I have also personally directed, reviewed, and agree with the discharge instructions and disposition. Disposition/Present on Arrival - Present on Arrival Any Indicators Present on Arrival: No History of DVT/PE: No History of Uncontrolled Diabetes: No Urinary Catheter: No History Surgical Site Infection Following: None - Disposition Have Diagnosis and Disposition been Completed?: Yes Diagnosis: Fall, Head injury, Leg pain Disposition: HOME/ ROUTINE Disposition Time: 10:25 Patient Plan: Discharge Condition: IMPROVED Discharge Instructions (ExitCare): Concussion in Adults, Preventing Falls Additional Instructions: TIGIST SCOTT, thank you for letting us take care of you today. Your provider was Michael Ramos DO and you were treated for Fall, Head Injury, Leg Pain. The emergency medical care you received today was directed at your acute symptoms. If you were prescribed any medication, please fill it and take as directed. It may take several days for your symptoms to resolve. Return to the Emergency Department if your symptoms worsen, do not improve, or if you have any other problems. Please contact your doctor or call one of the physicians/clinics you have been referred to that are listed on the Patient Visit Information form that is included in your discharge packet. Bring any paperwork you were given at discharge with you along with any medications you are taking to your follow up visit. Our treatment cannot replace ongoing medical care by a primary care provider outside of the emergency department. Thank you for allowing the [facility] team to be part of your care today. If you had an X-Ray or CT scan: A Radiologist will review the ED reading if any change in treatment is needed we will contact you. If you had a blood, urine, or wound culture: It will take several days for the results, if any change in treatment is needed we will contact you. If you had an STI test: It will take 48 hours for the results. Please call after 1 week if you have not heard back. Referrals: Isaiah Mallory DO [Primary Care Provider] - Follow up with primary Forms: [employer] (Urdu)
[2018-03-14 09:32] VITALS: RESP 16; TEMP 98.6; O2SAT 97
--- NOTE | 2018-03-14 10:23 | CT ---
Date of service: 03/14/2018 PROCEDURE: CT HEAD WITHOUT CONTRAST. HISTORY: head injury r/o ich r/o fx COMPARISON: 10/04/2014 TECHNIQUE: Axial computed tomography images were obtained through the head/brain without intravenous contrast. Radiation dose: Total exam DLP = 934 mGy-cm. This CT exam was performed using one or more of the following dose reduction techniques: Automated exposure control, adjustment of the mA and/or kV according to patient size, and/or use of iterative reconstruction technique. FINDINGS: HEMORRHAGE: No intracranial hemorrhage. BRAIN: No mass effect or edema. Chronic microvascular changes are seen. No acute intracranial findings VENTRICLES: Unremarkable. No hydrocephalus. CALVARIUM: Unremarkable. PARANASAL SINUSES: Unremarkable as visualized. No significant inflammatory changes. MASTOID AIR CELLS: Unremarkable as visualized. No inflammatory changes. OTHER FINDINGS: None. IMPRESSION: No acute findings
[2018-03-14 10:48] VITALS: BP 122/86; PULSE 86
--- NOTE | 2018-03-18 22:26 | US ---
HISTORY: Leg pain and swelling. Evaluate for DVT PHYSICIAN(S): Shan Mancera MD. TECHNIQUE: Duplex sonography and color-flow Doppler with graded compression were used to evaluate the deep venous systems of both lower extremities. FINDINGS: The visualized deep venous systems of both lower extremities are sonographically normal and compressible. Normal wave forms and augmentation are seen. There is no sonographic evidence for deep venous thrombosis in the visualized segments of both lower extremities. IMPRESSION: No sonographic evidence for deep venous thrombosis in the visualized segments of both lower extremities.
== END 2018-03-14 10:48 | disposition home or self-care (01) ==
LOC: ED 08:28
DX: S09.90XA Unspecified injury of head, initial encounter (principal); W18.30XA Fall on same level, unspecified, initial encounter; Y93.E1 Activity, personal bathing and showering; E78.5 Hyperlipidemia, unspecified; I10 Essential (primary) hypertension